=== PATIENT | female | born 1940 | race Caucasian/White ===

== ENCOUNTER 2017-07-11 06:06 | Day surgery (SDC) | payer MEDICARE, OTHER ==
[~2017-07-11] VITALS: Ht 167.6 cm; Wt 63.3 kg
[~2017-07-11 06:06] MED LIST: ASPI325 PO; ATOR40TA PO; CIPR500 PO; CLOP75 PO; ERGO400 PO; FEXO60; FOLI1 PO; GABA100 PO; IRON150C PO; LOSA25 PO; LOVA40 PO; NEBI5 PO; NITR.4SL SL; PARI1 PO; PHENA100 PO; ROSU5 PO; VALS80; VALS80 PO; VITAMIN D PO; [UNRECOGNIZED DRUG - OTHER]
[2017-07-11] MEDS ORDERED: ELIQUIS5 MG PO (06:36)
[2017-07-11] MEDS ORDERED: METO25 PO (06:36)
== END 2017-07-11 08:51 | disposition home or self-care (01) ==
LOC: ORSCSDS 06:06
PROVIDERS: Ophthalmology
PROC: 08RK3JZ Replacement of Left Lens with Synthetic Substitute, Percutaneous Approach (ICD-10-PCS; principal; 2017-07-11 07:30)
DX: H25.12 Age-related nuclear cataract, left eye (principal); I10 Essential (primary) hypertension; I48.91 Unspecified atrial fibrillation; I25.2 Old myocardial infarction; Z79.899 Other long term (current) drug therapy
CPT/HCPCS: 82947; J2250; J3301; V2632

== ENCOUNTER 2018-07-22 09:56 | Inpatient (IN) | payer MEDICARE, OTHER ==
[~2018-07-22] VITALS: Ht 167.6 cm; Wt 69.8 kg
[~2018-07-22 09:56] MED LIST changes: +CHOL10002 PO; +ELIQUIS5 MG PO; +METO25 PO; -VITAMIN D PO
[2018-07-22] MEDS ORDERED: LOSA25 PO (10:26)
[2018-07-22 10:52] LABS: BASOPHILS PERCENT AUTO 0 % (0-2); EOSINOPHILS ABSOLUTE AUTO 0.06 K/mm3 (0.00-0.68); EOSINOPHILS PERCENT AUTO 1 % (0-6); IMMATURE GRAN ABSOLUTE AUTO 0.05 K/mm3 (0.00-0.10); IMMATURE GRAN PERCENT AUTO 1 % (0-1); LYMPHOCYTES ABSOLUTE AUTO 2.17 K/mm3 (0.84-5.20); LYMPHOCYTES PERCENT AUTO 24 % (21-46); MONOCYTES ABSOLUTE AUTO 0.58 K/mm3 (0.16-1.47); MONOCYTES PERCENT AUTO 6 % (4-13); Mean Corpuscular HGB 26.5 pg (26.0-34.0); Mean Corpuscular HGB Conc 26.5 g/dL (31.5-36.5); Mean Platelet Volume 9.9 fL (9.1-12.4); NEUTROPHILS ABSOLUTE AUTO 6.37 K/mm3 (1.96-9.15); NEUTROPHILS PERCENT AUTO 69 % (41-73); Platelet Count 842 K/mm3 (150-400); RDW Coefficient Variation 17.2 % (11.7-14.2); RDW Standard Deviation 62.4 fL (35.1-46.3); Red Blood Cell Count 0.83 M/mm3 (3.80-5.20); White Blood Cell Count 9.23 K/mm3 (4.00-11.30)
[2018-07-22 10:59] LABS: Albumin, Blood 2.5 g/dL (3.4-5.0); Albumin/Globulin Ratio 0.5 (0.8-1.8); Bilirubin, Total 0.3 mg/dL (0.1-1.0); Bun/Creatinine Ratio 18.7 (12.0-20.0); Calcium, Blood 8.8 mg/dL (8.5-10.1); Creatinine, Blood 1.23 mg/dL (0.40-1.00); Potassium, Blood 4.4 mmol/L (3.5-5.5); Total Protein, Blood 7.5 g/dL (6.4-8.2)
[2018-07-22 11:08] LABS: Hematocrit 8.3 % (33.0-51.0); Mean Corpuscular Volume 100 fL (80-100)
[2018-07-22 11:10] LABS: Hemoglobin 2.2 g/dL (11.5-16.0)
[2018-07-22 12:41] LABS: Percent Saturation 10.2 % (15.0-50.0)
--- NOTE | 2018-07-22 18:37 | NUR ---
ARRIVAL AND SHIFT SUMMARY PT ARRIVED TO UNIT [facility] APPROX. 1705. PT ABLE TO ABMULATE FROM RNER TO BED AND TOLERATED WELL. DENIES DIZZINESS, SOB OR LIGHTHEADEDNESS WITH THIS. ORIENTED PT TO ROOM, UNIT, POLICIES AND PROCEDURES. PT A&O4. ASSESSMENT COMPLETED, VITAL SIGNS STABLE. PT REPORTS SOME PAIN IN RLQ WITH PALPITATION. DR WOMACK IN TO SEE PT. DISCUSSES PLAN WITH PT. PROTONIX DRIP STARTED. ADDMISSION PROCESS COMPLETED. NO CHANGES SINCE ADMISSION. BED IN LOW POSITION, CALL LIGHT IN REACH AND PT DENIES ANY NEEDS AT THIS TIME. WILL CONTINUE TO MONITOR UNTIL HANDOFF TO NIGHTSHIFT RN.
[2018-07-22 18:39] LABS: Hematocrit 28.1 % (33.0-51.0); Hemoglobin 8.6 g/dL (11.5-16.0)
--- NOTE | 2018-07-22 19:30 | NUR ---
ASSUMED CARE PT RESTING IN ROOM COMFORTABLY AT THIS TIME. PER DAY SHIFT PT CAME UP FROM ED WITH CRITICAL LOW HGB. PT RECEIVED 3 UNITS OF PRBC'S TODAY AND HGB LEVEL NOW ABOVE 8. GI CONSULT SAW PT AND LEFT ORDERS TO STOP ELLIQUIS TO PERFORM UPPER ENDOSCOPY WHEN ABLE. PT REPORTS FEELS BETTER. ABLT TO AMBULATE TO RR W/ SBA. RESP EVEN UNLBOARED ON RA W/ SATS >92%. PT DENIES PAIN AT THIS TIME. DENIES OTHER NEEDS. PROTONIX GTT AND NS INFUSING IN PIV. CALL LIGHT IN REACH.
[2018-07-22 22:48] LABS: Hematocrit 27.6 % (33.0-51.0); Hemoglobin 8.4 g/dL (11.5-16.0)
[2018-07-23 02:49] LABS: BASOPHILS ABSOLUTE AUTO 0.03 K/mm3 (0.00-0.23); BASOPHILS PERCENT AUTO 1 % (0-2); EOSINOPHILS ABSOLUTE AUTO 0.07 K/mm3 (0.00-0.68); EOSINOPHILS PERCENT AUTO 1 % (0-6); Hematocrit 26.4 % (33.0-51.0); Hemoglobin 8.1 g/dL (11.5-16.0); IMMATURE GRAN ABSOLUTE AUTO 0.02 K/mm3 (0.00-0.10); IMMATURE GRAN PERCENT AUTO 0 % (0-1); LYMPHOCYTES ABSOLUTE AUTO 1.46 K/mm3 (0.84-5.20); LYMPHOCYTES PERCENT AUTO 24 % (21-46); MONOCYTES ABSOLUTE AUTO 0.53 K/mm3 (0.16-1.47); MONOCYTES PERCENT AUTO 9 % (4-13); Mean Corpuscular HGB 27.6 pg (26.0-34.0); Mean Corpuscular HGB Conc 30.7 g/dL (31.5-36.5); Mean Platelet Volume 9.1 fL (9.1-12.4); NEUTROPHILS ABSOLUTE AUTO 3.87 K/mm3 (1.96-9.15); NEUTROPHILS PERCENT AUTO 65 % (41-73); Platelet Count 463 K/mm3 (150-400); RDW Standard Deviation 52.5 fL (35.1-46.3); Red Blood Cell Count 2.94 M/mm3 (3.80-5.20); White Blood Cell Count 5.98 K/mm3 (4.00-11.30)
[2018-07-23 02:51] LABS: Mean Corpuscular Volume 90 fL (80-100)
[2018-07-23 03:10] LABS: Albumin/Globulin Ratio 0.5 (0.8-1.8); Bilirubin, Total 0.8 mg/dL (0.1-1.0); Bun/Creatinine Ratio 14.5 (12.0-20.0); Calcium, Blood 8.1 mg/dL (8.5-10.1); Creatinine, Blood 1.1 mg/dL (0.40-1.00); Globulin, Blood 3.9 g/dL (2.2-4.0); Potassium, Blood 4.1 mmol/L (3.5-5.5); Total Protein, Blood 5.9 g/dL (6.4-8.2)
--- NOTE | 2018-07-23 06:01 | NUR ---
SHIFT SUMMARY PT IS SLEEPING IN ROOM COMFORTABLY AT THIS TIME. NO ACUTE CHANGES IN STATUS OVERNIGHT. PT SLEPT WELLL THOUGHOUT NIGHT, ONLY ONE COMPLAINT OF HEADACHE PAIN, PT WAS MEDICATED PER EMAR. RESP EVEN UNLBAORED ON RA W/ SATS >92%. DENIES PAIN THIS AM. PROTONIX AND NS INFUSING IN PIV. CALL LIGHT IN REACH.
[2018-07-23 06:55] LABS: Hematocrit 27.2 % (33.0-51.0); Hemoglobin 8.2 g/dL (11.5-16.0)
--- NOTE | 2018-07-23 07:40 | NUR ---
AM ASSESSMENT: Pt resting in bed. LS Clear. HR reg. BT positive. PUlses palp. Pt denies abd pain at this time. States that she does have a little MINAYA, but that it is improving. VSS. IVF running, protonix running. Call light in reach. Denies other needs.
[2018-07-23 10:29] LABS: Hematocrit 28.7 % (33.0-51.0); Hemoglobin 8.8 g/dL (11.5-16.0)
--- NOTE | 2018-07-23 13:54 | NUR ---
Patient gave student nurse permission to help care for her on 07/24/18
[2018-07-23 15:12] LABS: Hematocrit 23.5 % (33.0-51.0); Hemoglobin 7.1 g/dL (11.5-16.0)
--- NOTE | 2018-07-23 15:40 | NUR ---
UPDATE: H+H back from lab. Shows drop to 7.1. This was a line draw from and IV that is in the same vain that the NS was running. Infromed physician of this. Dr. Zazueta stated that he would like her to get another unit of PRBC anyway, and to do a redraw after the blood has infused.
--- NOTE | 2018-07-23 19:49 | NUR ---
Shift Summary: Pt sitting up in bed with unit of PRBC running per orders. VSS. Pt has done well this shift. Has been up to bathroom a few times today. Had one black BM. Pt has denied ABD pain this shift. Has remained on a CL diet. Plan for bowel prep tonight and NPO after 10 am for upper and lower scope 07/24. Pt verbalized understanding of bowel prep and blood transfusion. Report was given to night RN. Stable at end of shift.
[2018-07-24 03:44] LABS: BASOPHILS ABSOLUTE AUTO 0.04 K/mm3 (0.00-0.23); BASOPHILS PERCENT AUTO 1 % (0-2); EOSINOPHILS ABSOLUTE AUTO 0.13 K/mm3 (0.00-0.68); EOSINOPHILS PERCENT AUTO 2 % (0-6); Hematocrit 30.2 % (33.0-51.0); Hemoglobin 9.3 g/dL (11.5-16.0); IMMATURE GRAN ABSOLUTE AUTO 0.02 K/mm3 (0.00-0.10); IMMATURE GRAN PERCENT AUTO 0 % (0-1); LYMPHOCYTES ABSOLUTE AUTO 1.25 K/mm3 (0.84-5.20); LYMPHOCYTES PERCENT AUTO 18 % (21-46); MONOCYTES ABSOLUTE AUTO 0.56 K/mm3 (0.16-1.47); MONOCYTES PERCENT AUTO 8 % (4-13); Mean Corpuscular HGB Conc 30.8 g/dL (31.5-36.5); Mean Corpuscular Volume 91 fL (80-100); NEUTROPHILS ABSOLUTE AUTO 5.06 K/mm3 (1.96-9.15); NEUTROPHILS PERCENT AUTO 72 % (41-73); Platelet Count 478 K/mm3 (150-400); RDW Coefficient Variation 16.3 % (11.7-14.2); RDW Standard Deviation 53.3 fL (35.1-46.3); RETICULOCYTE ABSOLUTE 0.1072 M/mm3 (0.0200-0.1100); RETICULOCYTE COUNT PERCENT 3.23 % (0.50-2.50); Red Blood Cell Count 3.32 M/mm3 (3.80-5.20); White Blood Cell Count 7.06 K/mm3 (4.00-11.30)
[2018-07-24 04:04] LABS: Albumin, Blood 2.1 g/dL (3.4-5.0); Albumin/Globulin Ratio 0.5 (0.8-1.8); Bilirubin, Total 0.7 mg/dL (0.1-1.0); Bun/Creatinine Ratio 12.6 (12.0-20.0); Calcium, Blood 8.5 mg/dL (8.5-10.1); Creatinine, Blood 1.03 mg/dL (0.40-1.00); Globulin, Blood 4.3 g/dL (2.2-4.0); Magnesium, Blood 1.9 mg/dL (1.6-2.4); Phosphorus, Blood 3.5 mg/dL (2.5-4.9); Potassium, Blood 4.1 mmol/L (3.5-5.5); Total Protein, Blood 6.4 g/dL (6.4-8.2)
--- NOTE | 2018-07-24 05:46 | NUR ---
SHIFT SUMMARY: PT RECEIVED 1 U OF BLOOD. STARTED COLON PREP AT 2000 AND FINISHED AT 2400. LAST BM WAS WATERY DARK RED NO FECAL MATTER NOTED. VITAL SIGN REMAINED STABLE DURING SHIFT. BED ALARM WAS SET AND CALL LIGHT WITHIN REACH.
--- NOTE | 2018-07-24 07:20 | NUR ---
AM ASSESSMENT: Pt resting in bed. VSS. LS clear. HR reg. BT hyperactive. Pt using BSC. Having frequent liquid bloody stools with small amounts of sediment. Appear to be fairly clear for procedure. Pt denies abd pain. States that she has a small MINAYA that she denies needing anything for. Pulses palp. No other changes at this time. Pt knows that she will be NPO after 1000 this am. Call light in reach.
--- NOTE | 2018-07-24 13:55 | NUR ---
Pt. in bed resting and her nurse in the room attending to her needs offered prayers and support.
--- NOTE | 2018-07-24 15:30 | NUR ---
update: Pt resting in bed. Son at bedside. Plan for upper and lower scope this afternoon. Pt becoming slightly anxious about it being pushed back. States "what if the doctor is too tired?" Assured Pt that the procedure would not be done if the physician felt it was too dangerous. VSS. No acute changes at this time. Will monitor.
--- NOTE | 2018-07-24 19:05 | NUR ---
shift summary: Pt resting in room at this time. Has not gone for upper or lower scope yet today, plan for any time to go for scope. VSS throughout shift. Pt has not had any stool since this am, which was clear, red. HR has remained NSR, LS has been clear. BT positive. Pt very anxious about scope being done so late in the evening. Assured pt that the scope would only be completed if it was safe to do it. At that time day surgery came to get Pt and she was taken down for scope. Report given to night rn. Stable at end of shift.
--- NOTE | 2018-07-24 19:18 | NUR ---
ADMITTED OT SDS VSS TEMP ELEVATED. ALERT OREITED A LITTLE NERVOUS
--- NOTE | 2018-07-24 22:30 | NUR ---
PATIENT ARRIVED AT 2030 POST SCOPE PROCEDURE. PATIENT A/O NO PAIN AND NO CHANGE ON PRIMARY ASSESSMENT.
[2018-07-25 04:03] LABS: BASOPHILS ABSOLUTE AUTO 0.02 K/mm3 (0.00-0.23); BASOPHILS PERCENT AUTO 0 % (0-2); EOSINOPHILS ABSOLUTE AUTO 0.17 K/mm3 (0.00-0.68); EOSINOPHILS PERCENT AUTO 3 % (0-6); Hematocrit 28.2 % (33.0-51.0); Hemoglobin 8.4 g/dL (11.5-16.0); IMMATURE GRAN ABSOLUTE AUTO 0.02 K/mm3 (0.00-0.10); IMMATURE GRAN PERCENT AUTO 0 % (0-1); LYMPHOCYTES PERCENT AUTO 15 % (21-46); MONOCYTES PERCENT AUTO 9 % (4-13); Mean Corpuscular HGB 27.1 pg (26.0-34.0); Mean Corpuscular HGB Conc 29.8 g/dL (31.5-36.5); Mean Corpuscular Volume 91 fL (80-100); Mean Platelet Volume 9.2 fL (9.1-12.4); NEUTROPHILS PERCENT AUTO 73 % (41-73); Platelet Count 449 K/mm3 (150-400); RDW Coefficient Variation 16.6 % (11.7-14.2); RDW Standard Deviation 53.6 fL (35.1-46.3); White Blood Cell Count 6.61 K/mm3 (4.00-11.30)
[2018-07-25 04:22] LABS: Albumin, Blood 1.9 g/dL (3.4-5.0); Albumin/Globulin Ratio 0.5 (0.8-1.8); Bilirubin, Total 0.7 mg/dL (0.1-1.0); Bun/Creatinine Ratio 7.2 (12.0-20.0); Calcium, Blood 8.4 mg/dL (8.5-10.1); Creatinine, Blood 0.98 mg/dL (0.40-1.00); Globulin, Blood 4.1 g/dL (2.2-4.0); Potassium, Blood 3.5 mmol/L (3.5-5.5)
--- NOTE | 2018-07-25 06:12 | NUR ---
SHIFT SUMMARY: PT ALERT AND ORIENTED. REMAINED STABLE POST PROCEDURE AND DURING SHIFT. ON CLEAR LIQUID DIET. SLEPT THROUGHOUT SHIFT. BED IN LOW POSITION AND CALL LIGHT WITHIN REACH.
--- NOTE | 2018-07-25 08:00 | NUR ---
pt sitting up in bed awake a/ox3, pleasant and cooperative with care, follows commands well, denies pain, or dizziness, lungs are clear t/o, resp even and unlabored, no cough noted, hrr, tele in place running sr with 1st degree block, no edema noted, ppp+2, cap refill <3 sec, vs stable, afebrile, iv site is clear and patent to left fa, iv to dipak is not flushing, btx4, abd flat soft nontender, voids without diff, skin c/w/d, maew, thelma, call light in reach.
--- NOTE | 2018-07-25 10:03 | NUR ---
pt reports she has had three stools with red blood this am. denies any dizziness. asked her to call if she begins experiencing anything off. call light in reach.
--- NOTE | 2018-07-25 10:05 | NUR ---
verified that surgical consult has been called in to surgeon.
--- NOTE | 2018-07-25 12:44 | NUR ---
PT DOING OK, SAT UP ON SIDE OF BED TO HAVE LUNCH. NO COMPLAINTS. WANTS A SHOWER LATER. WAITING FOR SURGICAL CONSULT. CALL LIGHT IN REACH.
--- NOTE | 2018-07-25 13:39 | NUR ---
Met pt. in bed who said she is doing well and do not need a visitor
[2018-07-25 15:11] LABS: Hematocrit 30.8 % (33.0-51.0); Hemoglobin 9.2 g/dL (11.5-16.0)
--- NOTE | 2018-07-25 18:38 | NUR ---
PT HAD THREE EPISODES OF BLOOD IN HER STOOL TODAY, DR. WOMACK WAS IN TO SEE HER AND SAID COULD BE FROM BIOPSIES. NO FURTHER EPISODES SINCE THIS AM. WILL BE GOING TO SURGERY TOMORROW AM. PT UNDERSTANDS SHE NEEDS TO BE NPO AFTER MIDNIGHT. CALL LIGHT IN REACH.
--- NOTE | 2018-07-26 07:49 | NUR ---
INTO SDS VIA BED. PT A&OX3. IROQUOIS-HEARING AIDES IN PLACE. NPO STATUS CONFIRMED. HISTORY AND ALLERGIES REVIEWED.LUNGS CLEAR-SATS>90% ON RA.ABDOMEN PREPPED WITH CHLORHEXIDINE.
--- NOTE | 2018-07-26 07:52 | NUR ---
Glenn STEWARD, PT LEAVING FOR OR. NO COMPLAINTS, STATES SHE IS A BIT ANXIOUS. HAD A GOOD NIGHT. LEFT VIA BED WITH DAY SURG NURSES.
--- NOTE | 2018-07-26 09:08 | NUR ---
07/26/18 0908 Gianni Curry PATIENT DETERMINED TO BE ASA APPROPRIATE FOR PROPOFOL SEDATION PRIOR TO START OF PROCEDURE BY 3-LEAD EKG REVIEWED WITH PHYSICIAN PRIOR TO START OF PROCEDURE.Patient to ENDO 1History, Chart, Medications and Allergies reviewed before start of procedure.MONITOR INTACT WITH CONTINUOUS PULSE OXIMETRY AND INTERMITTENT BP.O2 VIA N/C INTACT THROUGHOUT SEDATION/PROCEDURE.
--- NOTE | 2018-07-26 12:32 | NUR ---
pt arrived to room via bed from pacu, she is sleepy but wakes easily. vs stable. incision has a wound vac in place. call light in reach. will continued to monitor.
--- NOTE | 2018-07-26 13:20 | NUR ---
pt doing ok, is having some ice chips very slowly. family at bedside. no complaints. vs stalble. call light in reach.
--- NOTE | 2018-07-26 15:17 | NUR ---
pt has been transfered to surgical floor, after giving report to the recieving nurse, all pts belongings were taken with her.
--- NOTE | 2018-07-26 19:02 | NUR ---
shift summary patient to the floor from pcu at [address], all dressings c/d/i. patient pleasant. numbness in the r hip, pain level at 3. pleasant. no pain level above3.
[2018-07-27 03:59] LABS: BASOPHILS ABSOLUTE AUTO 0.02 K/mm3 (0.00-0.23); BASOPHILS PERCENT AUTO 0 % (0-2); EOSINOPHILS PERCENT AUTO 0 % (0-6); Hematocrit 29.6 % (33.0-51.0); IMMATURE GRAN ABSOLUTE AUTO 0.03 K/mm3 (0.00-0.10); IMMATURE GRAN PERCENT AUTO 0 % (0-1); LYMPHOCYTES ABSOLUTE AUTO 0.49 K/mm3 (0.84-5.20); LYMPHOCYTES PERCENT AUTO 4 % (21-46); MONOCYTES ABSOLUTE AUTO 0.44 K/mm3 (0.16-1.47); MONOCYTES PERCENT AUTO 4 % (4-13); Mean Corpuscular HGB 27.3 pg (26.0-34.0); Mean Corpuscular HGB Conc 30.4 g/dL (31.5-36.5); Mean Corpuscular Volume 90 fL (80-100); Mean Platelet Volume 9.2 fL (9.1-12.4); NEUTROPHILS ABSOLUTE AUTO 11.04 K/mm3 (1.96-9.15); NEUTROPHILS PERCENT AUTO 92 % (41-73); Platelet Count 516 K/mm3 (150-400); RDW Standard Deviation 51.9 fL (35.1-46.3); White Blood Cell Count 12.02 K/mm3 (4.00-11.30)
[2018-07-27 04:12] LABS: Bun/Creatinine Ratio 9.3 (12.0-20.0); Calcium, Blood 8.4 mg/dL (8.5-10.1); Creatinine, Blood 1.08 mg/dL (0.40-1.00); Potassium, Blood 3.9 mmol/L (3.5-5.5)
--- NOTE | 2018-07-27 16:50 | NUR ---
SHIFT SUMMARY PATIENT HAS BEEN PLEASANT TODAY. ALERT AND ORIENTED. NO LOSS OF SENSATION AND NO NUMBNESS NOTED IN HER HIP ANYMORE. PATIENT DENIES PAIN ANYWHERE AND STATES PAIN IS 0/10. NO ACUTE CONERNS FROM THE PATIENT AND REPORTS THAT SHE IS STARTING TO GET NAUSEOUS. ASSESSED FOR CHANGES, PATIENT IS LOOKING MORE DISTENDED AND NOTES THAT SHE HAS NOT PASSED FLATUS AT THIS POINT. SHE STATES THAT SHE IS FEELING BLOATED, BUT HAS NO PAIN. WILL CONTINUE TO MONITOR AND ASSESS FOR CHANGES.
[2018-07-28 04:08] LABS: BASOPHILS ABSOLUTE AUTO 0.01 K/mm3 (0.00-0.23); BASOPHILS PERCENT AUTO 0 % (0-2); EOSINOPHILS ABSOLUTE AUTO 0.05 K/mm3 (0.00-0.68); EOSINOPHILS PERCENT AUTO 1 % (0-6); Hematocrit 28.3 % (33.0-51.0); Hemoglobin 8.7 g/dL (11.5-16.0); IMMATURE GRAN ABSOLUTE AUTO 0.03 K/mm3 (0.00-0.10); IMMATURE GRAN PERCENT AUTO 0 % (0-1); LYMPHOCYTES ABSOLUTE AUTO 0.75 K/mm3 (0.84-5.20); LYMPHOCYTES PERCENT AUTO 8 % (21-46); MONOCYTES PERCENT AUTO 4 % (4-13); Mean Corpuscular HGB 27.4 pg (26.0-34.0); Mean Corpuscular HGB Conc 30.7 g/dL (31.5-36.5); Mean Corpuscular Volume 89 fL (80-100); Mean Platelet Volume 9.5 fL (9.1-12.4); NEUTROPHILS ABSOLUTE AUTO 8.53 K/mm3 (1.96-9.15); NEUTROPHILS PERCENT AUTO 87 % (41-73); Platelet Count 549 K/mm3 (150-400); RDW Coefficient Variation 15.8 % (11.7-14.2); RDW Standard Deviation 51.5 fL (35.1-46.3); Red Blood Cell Count 3.18 M/mm3 (3.80-5.20); White Blood Cell Count 9.77 K/mm3 (4.00-11.30)
--- NOTE | 2018-07-28 04:38 | NUR ---
SHIFT SUMMARY PT IS POD 2 RIGHT HEMICOLECTOMY. PREVENA WOUND VAC IN PLACE, C/D/I. PT HAS BEEN NAUSEATED T/O THE NIGHT AND HAS REQUIRED MULTIPLE DOSES OF ZOFRAN. SHE HAS HAD A SMALL AMOUNT OF BROWN BILE EMESIS. PT IS TAKING IN ONLY SMALL AMOUNTS OF LIQUIDS, COMPLETELY UNINTERESTED IN MEAL TRAYS. SHE SKIPPED DINNER LAST NIGHT AND HAS ALREADY STATED SHE DOES NOT WANT BREAKFAST. PT C/O GENERAL MALAISE AND UPSET STOMACH. SHE DOES REPORT HER PAIN IS 0/10 WITH THE EPIDURAL. SHE HAS PASSED GAS ONCE AND HAD SOME BELCHING. PT IS A 1 ASSIST W/ FWW AND GB FOR AMBULATION. FLUIDS RUNNING TO KVO. SIERRA PATENT AND DRAINING. PT A&O, ABLE TO MAKE NEEDS KNOWN. WILL CTM UNTIL PASS TO NEXT SHIFT.
--- NOTE | 2018-07-28 17:50 | NUR ---
SHIFT SUMMARY CONSISTANT NAUSEA T/O THE SHIFT WITH INTERMITTANT EPISODES OF EMESIS. AFTER PHENERGAN ADMINISTRATION PT REPORTS NO NAUSEA FOR FIRST TIME DURING THIS SHIFT. ABD HAS BECOME MORE DISTENDED T/O SHIFT, RECENT INCREASE IN EMESIS. DISCUSSED NGT BENIFITS WITH PT AND REFUSES- SURGEON NOTIFIED OF THIS. AMBULATED 400 FEET THIS MORNING WITH 2 PERSON ASSIST AND GAITBELT, VERY WEAK. UP IN CHAIR TWICE TODAY. EPIDURAL IN USE WITH DRESSING INTACT AND MANAGING PAIN WELL. NO C/O PAIN DURING SHIFT.
[2018-07-29 04:30] LABS: BASOPHILS ABSOLUTE AUTO 0.01 K/mm3 (0.00-0.23); BASOPHILS PERCENT AUTO 0 % (0-2); EOSINOPHILS PERCENT AUTO 0 % (0-6); Hematocrit 34.7 % (33.0-51.0); Hemoglobin 10.6 g/dL (11.5-16.0); IMMATURE GRAN ABSOLUTE AUTO 0.01 K/mm3 (0.00-0.10); IMMATURE GRAN PERCENT AUTO 0 % (0-1); LYMPHOCYTES ABSOLUTE AUTO 0.31 K/mm3 (0.84-5.20); LYMPHOCYTES PERCENT AUTO 4 % (21-46); MONOCYTES ABSOLUTE AUTO 0.38 K/mm3 (0.16-1.47); MONOCYTES PERCENT AUTO 5 % (4-13); Mean Corpuscular HGB 27.7 pg (26.0-34.0); Mean Corpuscular HGB Conc 30.5 g/dL (31.5-36.5); Mean Corpuscular Volume 91 fL (80-100); Mean Platelet Volume 9.3 fL (9.1-12.4); NEUTROPHILS ABSOLUTE AUTO 6.33 K/mm3 (1.96-9.15); NEUTROPHILS PERCENT AUTO 90 % (41-73); Platelet Count 660 K/mm3 (150-400); RDW Coefficient Variation 15.7 % (11.7-14.2); RDW Standard Deviation 51.5 fL (35.1-46.3); Red Blood Cell Count 3.83 M/mm3 (3.80-5.20); White Blood Cell Count 7.04 K/mm3 (4.00-11.30)
[2018-07-29 04:45] LABS: Bun/Creatinine Ratio 12.1 (12.0-20.0); Calcium, Blood 8.9 mg/dL (8.5-10.1); Creatinine, Blood 1.07 mg/dL (0.40-1.00); Potassium, Blood 3.5 mmol/L (3.5-5.5)
--- NOTE | 2018-07-29 06:31 | NUR ---
SITTING UP IN CHAIR AT BEDSIDE WITH EYES CLOSED. MEDICATED FOR N/V X5 THIS SHIFT. NO FURTHER CHANGES SINCE START OF SHIFT. SAFETY MEASURES IN PLACE. WILL GIVE HAND OFF TO ONCOMING SHIFT USING SBAR.
--- NOTE | 2018-07-29 09:30 | NUR ---
AIRLINE COUNTER AGENT AND THIS RN PLACED NGT TO LIS PER DR ORDER PT HAS BEEN HAVING MULT EPISODES OF EMESIS.
--- NOTE | 2018-07-29 19:15 | NUR ---
SHIFT SUMMARY PT WAS VERY NAUSEOUS THIS MORNING. NG TUBE WAS PLACED THIS MORNING. PT REPORTS FEELING MUCH BETTER AFTER NG TUBE PLACEMENT. OT AND PHYSICAL THERAPY IN TO SEE PT TODAY. PT DID NOT FEEL UP TO GETTING OUT OF BED TODAY. PT HAS BEEN EATING FEW ICE CHIPS. SIERRA IN PLACE AND DRAINING AND OFF FLOOR. CALL LIGHT IN REACH. PT BEEN ASSISTED WITH ADL'S PRN.
--- NOTE | 2018-07-30 06:10 | NUR ---
LYING IN SEMI FOWLERS WITH EYES CLOSED. EPIDURAL SITE IS C/D/I, DENIES PAIN AT THIS TIME. NO FURTHER CHANGES SINCE START OF SHIFT. SAFETY MEASURES IN PLACE. WILL GIVE HAND OFF TO ONCOMING SHIFT USING SBAR.
[2018-07-30 08:12] LABS: BASOPHILS ABSOLUTE AUTO 0.02 K/mm3 (0.00-0.23); BASOPHILS PERCENT AUTO 0 % (0-2); EOSINOPHILS ABSOLUTE AUTO 0.07 K/mm3 (0.00-0.68); EOSINOPHILS PERCENT AUTO 1 % (0-6); Hematocrit 31.9 % (33.0-51.0); Hemoglobin 9.6 g/dL (11.5-16.0); IMMATURE GRAN ABSOLUTE AUTO 0.02 K/mm3 (0.00-0.10); IMMATURE GRAN PERCENT AUTO 0 % (0-1); LYMPHOCYTES ABSOLUTE AUTO 0.73 K/mm3 (0.84-5.20); LYMPHOCYTES PERCENT AUTO 11 % (21-46); MONOCYTES ABSOLUTE AUTO 0.55 K/mm3 (0.16-1.47); MONOCYTES PERCENT AUTO 8 % (4-13); Mean Corpuscular HGB 27.3 pg (26.0-34.0); Mean Corpuscular HGB Conc 30.1 g/dL (31.5-36.5); Mean Corpuscular Volume 91 fL (80-100); Mean Platelet Volume 9.5 fL (9.1-12.4); NEUTROPHILS ABSOLUTE AUTO 5.17 K/mm3 (1.96-9.15); NEUTROPHILS PERCENT AUTO 79 % (41-73); Platelet Count 591 K/mm3 (150-400); RDW Coefficient Variation 15.9 % (11.7-14.2); RDW Standard Deviation 51.9 fL (35.1-46.3); Red Blood Cell Count 3.52 M/mm3 (3.80-5.20); White Blood Cell Count 6.56 K/mm3 (4.00-11.30)
[2018-07-30 08:29] LABS: Bun/Creatinine Ratio 16.8 (12.0-20.0); Calcium, Blood 8.1 mg/dL (8.5-10.1); Creatinine, Blood 1.01 mg/dL (0.40-1.00); Potassium, Blood 3.5 mmol/L (3.5-5.5)
--- NOTE | 2018-07-30 08:35 | NUR ---
DR BASS NOTIFIED OF PT'S STATUS INCLUDING VS. SEE ORDERS.
--- NOTE | 2018-07-30 09:38 | NUR ---
DR BASS RECENTLY TO SEE PT, GIVEN UPDATE. SEE ORDERS.
--- NOTE | 2018-07-30 10:12 | NUR ---
DISCUSSED PT'S STATUS WITH DR BASS.
--- NOTE | 2018-07-30 11:48 | NUR ---
PT HR 110 AT THIS TIME PER TELEMETRY.
--- NOTE | 2018-07-30 13:15 | NUR ---
BEEN UPDATING DR BASS, SEE ORDERS. DR AMADO HERE TO SEE PT, GIVEN UPDATE ON PT. PT CONT TO REPORT PASSING GAS. REPORTS H/A.
--- NOTE | 2018-07-30 14:00 | NUR ---
Patient permission On 07/30/18 @ 1345, patient gave student permission to participate in care on 07/31/18
--- NOTE | 2018-07-30 15:53 | NUR ---
TELE REPORTS HR 120.
--- NOTE | 2018-07-30 17:38 | NUR ---
PT RESTING QUIETLY IN CHAIR, REPORTS MINAYA BETTER AND REPORTS FEELING BETTER. TELE REPORTS HR 115-128. PT CONT TO DENY CP/SOB. PT PASSING GAS. SIERRA IN PLACE. SEE I/O. DR BASS UPDATED ON PT'S STATUS. REPORTS TO KEEP SIERRA IN PLACE FOR STRICT I/O AND TRANSFER PT TO PCU. REPORTS WILL PLACE OTHER ORDERS. DISCUSSED WITH REGULATORY COMPLIANCE MANAGER. WILL DISCUSS WITH NURSING WEIGHT LOSS COUNSELOR.
--- NOTE | 2018-07-30 17:44 | NUR ---
NURSING THERMOSTAT MECHANIC NOTIFIED OF DR BASS TRANSFER PT TO PCU.
--- NOTE | 2018-07-30 18:38 | NUR ---
PT TO TRANSFER TO PCU PER DR BASS. SHOVEL LOGGER (SANTIAGO) GIVEN REPORT. PT REPORTED TEXTING FAMILY AND THAT THIS RN DID NOT NEED TO GIVE UPDATE TO FAMILY. WILL TRANSFER PT TO PCU.
--- NOTE | 2018-07-30 18:45 | NUR ---
PT TRANSFERRED TO PCU IN RECLINER CHAIR. PT ASSISTED TO BED WITH MULT ASSIST. NGT TO GRAVITY. PT'S MEDICATIONS AND BELONGINGS SENT WITH PT. PT HAD NO REDNESS ON BOTTOM WHEN MOVING TO BED. HS RN IN ROOM, REPORTS WILL OBTAIN REPORT FROM DAYSHIFT TAKER OFF BRAKER MACHINE.
--- NOTE | 2018-07-30 19:52 | NUR ---
PT REPORT RECEIVED AT 1840 FROM NHUNG JACINTO IN SURGICAL. GAVE REPORT TO NHUNG العراقي AND HELPED TO SETTLE PATIENT, START IV DRIPS AND PASS REPORT.
--- NOTE | 2018-07-30 20:43 | NUR ---
CARDIZEM DRIP RATE INCREASED TO 10MG/HR AT THIS TIME, VERIFIED WITH RN, YANIRA. HR RANGING 110-140 BP 143/78. PT A/O WILL CTM
--- NOTE | 2018-07-30 22:22 | NUR ---
CARDIZEM DRIP RATE INCREASED TO 15MG/HR AT THIS TIME, DOSE VERIFIED BY NHUNG DOYLE
--- NOTE | 2018-07-31 05:29 | NUR ---
CARDIZEM DRIP TITRATED TO 10MG/HR AT THIS TIME. PT HR 85-105 PER TELE, AFIB, BP STABLE.
--- NOTE | 2018-07-31 05:55 | NUR ---
SUMMARY: SEE PREVIOUS NOTES. PT IS POD5 FOR A R NIRAV COLECTOMY. A/O, VSS THIS AM. CARDIZEM TITRATED TO 10MG/HR THIS AM. HR RANGING 85-105, AFIB. PT DENIES SOB, CHEST PAIN. PT REPORTS PASSING GAS AND HAS HAD 3 BM'S. PT HAS DENIED N/V, NGT TO GRAVITY, NO OUTPUT. PT UP WITH SBA, SOME WEAKNESS. SURGICAL SITE WNL, SIERRA DRAINING. NO ACUTE SAFETY CONCERNS AT THIS TIME.
[2018-07-31 05:58] LABS: Albumin, Blood 1.8 g/dL (3.4-5.0); Anion Gap 9 mmol/L (6-16); Blood Urea Nitrogen 21 mg/dL (8-24); Bun/Creatinine Ratio 21.7 (12.0-20.0); CO2, Blood 22 mmol/L (21-32); Chloride, Blood 110 mmol/L (98-108); Creatinine, Blood 0.97 mg/dL (0.40-1.00); Glomerular Filtration Rate 59 (60-); Glucose, Blood 76 mg/dL (70-99); Phosphorus, Blood 2.6 mg/dL (2.5-4.9); Potassium, Blood 3.6 mmol/L (3.5-5.5); Sodium, Blood 141 mmol/L (136-145)
--- NOTE | 2018-07-31 17:02 | NUR ---
SHIFT SUMMARY PT A&OX3. PT HAS BEEN PLEASANTLY UP IN THE CHAIR MOST OF THE DAY. DIET ADVANCED TO CLEAR LIQUID AT LUNCHTIME AND HAS BEEN TOLERATED WELL. NG TUBE AND SIERRA WERE PULLED AT 1630, AND BOTH TOLERATED WELL. PT HAS HAD BM TODAY, AND 2 LAST NIGHT. BOWEL SOUNDS IN ALL 4 QUADRANTS, NO N/V. PT BEEN ON CARDIZEM ALL DAY, STARTED AT 10ML/HR AND TITRATED UP TO 15ML/HR DUE TO HR STAYING IN THE LOW 100'S. PT HAS AMBULATED TWICE IN THE ROOM TODAY. PT HAS NUMBNESS IN RIGHT UPPER LEG SINCE OPERATION, DR. BASS WAS NOTIFIED AND TALKED WITH PT. CALL LIGHT IN REACH, BED IN LOWEST POSITION, AND SAFETY PRECAUTIONS HAVE BEEN DISCUSSED.
--- NOTE | 2018-07-31 21:45 | NUR ---
PT UPDATE... PT UP TO THE BSC, HAD SMALL LOOSE BM BUT NO VOID. BLADDER SCAN WAS DONE, 123 MLS WAS FOUND, WILL CONTINUE TO MONITOR.
--- NOTE | 2018-07-31 23:04 | NUR ---
PM NOTE. ASSUMED CARE OF PT APROX 1900, PT IS A&Ox4 AND SBA IN THE ROOM. PT IS S/P ABD SURGERY WITH WOUND VAC IN PLACE. PT ALSO HAS AFIB IN THE 90'S-100'S AND IS ON CARDIZEM GTT AT 10MG/HR. TELE INTACT, AFIB IN THE 'S-'S, PT'S BP 133/60. NO EDEMA NOTED. L/S CLEAR T/O W/FINE CRACKLES IN THE LEFT LOWER BASE. PT IS ON RA RR 19, EVEN AND UNLABORED. ABD HAS WOUND VAC DRESSING, THIS IS C/D/I, WOUND VAC IS PATENT. ABD AROUND THE WOUND VAC IS SLIGHTLY TENDER. PT'S SIERRA WAS D/C'D AT 1630, PT HAS NOT VOIDED AT THIS TIME. WILL MONITOR. CALL LIGHT IN REACH, BED IS LOCKED AND LOW WILL CONTINUE TO MONITOR.
[2018-08-01 05:13] LABS: Hematocrit 32.9 % (33.0-51.0); Hemoglobin 9.5 g/dL (11.5-16.0)
[2018-08-01 05:35] LABS: Anion Gap 9 mmol/L (6-16); Blood Urea Nitrogen 20 mg/dL (8-24); CO2, Blood 23 mmol/L (21-32); Calcium, Blood 8.4 mg/dL (8.5-10.1); Chloride, Blood 107 mmol/L (98-108); Creatinine, Blood 0.91 mg/dL (0.40-1.00); Glomerular Filtration Rate >60 (60-); Glucose, Blood 79 mg/dL (70-99); Phosphorus, Blood 2.2 mg/dL (2.5-4.9); Potassium, Blood 3.1 mmol/L (3.5-5.5); Sodium, Blood 139 mmol/L (136-145)
--- NOTE | 2018-08-01 05:52 | NUR ---
SHIFT SUMMARY. PT HAS BEEN UNABLE TO VOID SINCE HER SIERRA WAS D/C'D AT 1630 ON 07/31. PROVIDER WAS CALLED, ORDERS OBTAINED TO BLADDER SCAN PRN, IF 500MLS OR GREATER IS FOUND TO STRAIGHT CATH. PT IS AGREEABLE AT THIS TIME TO THIS PLAN, LAST BLADDER SCAN DONE AT 0515 FOUND 457 MLS. PT HAS BEEN UP TO COMMODE AND WALKED AROUND THE ROOM MULTIPLE TIMES. PT IS CURRENTLY ON 5MG/HR CARDIZEM, SHE IS IN AFIB IN THE 80'S PER CLINICAL REGISTERED NURSE, PT'S BP HAS BEEN STABLE T/O SHIFT. PT STILL C/O NUMBNESS AND WEAKNESS TO HER RIGHT LEG FROM THE EPIDURAL SHE HAD FOR HER SURGERY. PT STATES NO IMPROVMENT THIS SHIFT. CALL LIGHT IN REACH, BED IS LOCKED AND LOW WILL CONTINUE TO MONITOR UNTIL REPORT IS GIVEN TO ONCOMING RN.
--- NOTE | 2018-08-01 15:05 | NUR ---
Met pt lying in bed resting she reports to be doing well, encouraged pt , offered spiritual support and prayers .
--- NOTE | 2018-08-01 18:31 | NUR ---
SHIFT SUMMARY PT ALERT AND ORIENTED. VS STABLE. CARDIZEM GTT WAS DISCONTINUED THIS SHIFT. HR HAS BEEN 90'S TO 100'S AFIB. BP STABLE. PT VOIDED EARLY IN THE SHIFT AND HAS VOIDED MULTIPLE TIMES. PT BLADDER SCANNED ONCE, BUT NOT ENOUGH TO STRAIGHT CATH. PT HAD MULTIPLE LIQUID BOWEL MOVEMENTS THIS SHIFT DARK BROWN. PT ABLE TO TOLERATE A REGULAR DIET. WILL CONTINUE TO MONITOR AND REPORT TO ONCOMING RN.
[2018-08-02 04:19] LABS: Albumin, Blood 1.7 g/dL (3.4-5.0); Anion Gap 5 mmol/L (6-16); Blood Urea Nitrogen 16 mg/dL (8-24); Bun/Creatinine Ratio 19.7 (12.0-20.0); CO2, Blood 24 mmol/L (21-32); Calcium, Blood 7.9 mg/dL (8.5-10.1); Chloride, Blood 108 mmol/L (98-108); Creatinine, Blood 0.81 mg/dL (0.40-1.00); Glomerular Filtration Rate >60 (60-); Glucose, Blood 88 mg/dL (70-99); Phosphorus, Blood 2.3 mg/dL (2.5-4.9); Potassium, Blood 3.5 mmol/L (3.5-5.5); Sodium, Blood 137 mmol/L (136-145)
--- NOTE | 2018-08-02 06:00 | NUR ---
SUMMARY PT REQUIRED 1 DOSE IV LOPRESSER TONIGHT TO BRING HEART RATE BELOW 100. WAS UP IN CHAIR THIS AM. BOTTOM GETTING RED.PLACED MEPILEX.
--- NOTE | 2018-08-02 14:24 | NUR ---
Met pt. in bed relaxed and watching T.V.. Pt. is dsoing muchn better encouraged pt.
--- NOTE | 2018-08-02 18:14 | NUR ---
SHIFT SUMMARY PT ALERT AND ORIENTED. O2 SATS HAVE REMAINED ABOVE 90% ON RA. BP STABLE. HR HAS BEEN 120'S AFIB THORUGHOUT SHIFT. ORAL METOPROLOL HAS BEEN INCREASED FOR BETTER RATE CONTROL. PT ABLE TO VOID THIS SHIFT WITHOUT RETENTION. NO BOWEL MOVEMENT THIS SHIFT, BUT PT IS PASSING GAS. WOUND VAC TO ABD IN PLACE. PT DENIES ANY PAIN. PT WALKED MULTIPLE TIMES THROUGHOUT DAY IN ROOM WITH FWW. PT COMPLAINS OF NUMBNESS TO RIGHT LEG SINCE EPIDURAL. WILL CONTINUE TO MONITOR AND REPORT TO ONCOMING RN. CALL LIGHT IN REACH.
[2018-08-03 05:05] LABS: BASOPHILS ABSOLUTE AUTO 0.05 K/mm3 (0.00-0.23); BASOPHILS PERCENT AUTO 1 % (0-2); EOSINOPHILS ABSOLUTE AUTO 0.42 K/mm3 (0.00-0.68); EOSINOPHILS PERCENT AUTO 5 % (0-6); Hematocrit 33.2 % (33.0-51.0); Hemoglobin 9.8 g/dL (11.5-16.0); IMMATURE GRAN ABSOLUTE AUTO 0.09 K/mm3 (0.00-0.10); IMMATURE GRAN PERCENT AUTO 1 % (0-1); LYMPHOCYTES ABSOLUTE AUTO 1.76 K/mm3 (0.84-5.20); LYMPHOCYTES PERCENT AUTO 21 % (21-46); MONOCYTES ABSOLUTE AUTO 0.52 K/mm3 (0.16-1.47); MONOCYTES PERCENT AUTO 6 % (4-13); Mean Corpuscular HGB 26.9 pg (26.0-34.0); Mean Corpuscular HGB Conc 29.5 g/dL (31.5-36.5); Mean Corpuscular Volume 91 fL (80-100); Mean Platelet Volume 10.4 fL (9.1-12.4); NEUTROPHILS PERCENT AUTO 67 % (41-73); Platelet Count 736 K/mm3 (150-400); RDW Coefficient Variation 15.7 % (11.7-14.2); RDW Standard Deviation 51.8 fL (35.1-46.3); Red Blood Cell Count 3.64 M/mm3 (3.80-5.20); White Blood Cell Count 8.54 K/mm3 (4.00-11.30)
--- NOTE | 2018-08-03 05:27 | NUR ---
SHIFT SUMMARY: PATIENT REMAINED STABLE THROUGHOUT SHIFT, SLEPT MOST OF THE NIGHT. HEART RHYTHM REMAINED ON AFIB DURING SHIFT HEART RATE AT 100'S. PATIENT IS SITTING ON HER CHAIR AT THIS TIME, CALL LIGHT WITHIN REACH.
[2018-08-03 06:01] LABS: Albumin, Blood 1.8 g/dL (3.4-5.0); Anion Gap 8 mmol/L (6-16); Blood Urea Nitrogen 12 mg/dL (8-24); Bun/Creatinine Ratio 14.3 (12.0-20.0); CO2, Blood 24 mmol/L (21-32); Calcium, Blood 8.1 mg/dL (8.5-10.1); Chloride, Blood 105 mmol/L (98-108); Creatinine, Blood 0.84 mg/dL (0.40-1.00); Glomerular Filtration Rate >60 (60-); Glucose, Blood 82 mg/dL (70-99); Phosphorus, Blood 2.7 mg/dL (2.5-4.9); Potassium, Blood 3.3 mmol/L (3.5-5.5); Sodium, Blood 137 mmol/L (136-145)
--- NOTE | 2018-08-03 07:05 | NUR ---
RECVD REPORT FROM PREVIOUS RN AND STUDENT, PT SLEEPING IN BED, CALL LIGHT WITHIN REACH, BED RAILS UP X 2, BED IN LOWEST POSITION
--- NOTE | 2018-08-03 10:00 | NUR ---
DR BONDS TO ROUND ON PT, ORDERS GIVEN
--- NOTE | 2018-08-03 13:00 | NUR ---
gave bedside report to NHUNG Hunter and nursing officer radha Mariano transferred to surgical unit room 229
--- NOTE | 2018-08-03 13:18 | NUR ---
TRANSFER PT TRANSFER FROM PCU AT 1311.REPORT RECEIVED FROM PCU NURSE. PT ALERT AND ORIENTED, NO SOB. TELE IN PLACE.
--- NOTE | 2018-08-03 15:39 | NUR ---
PT REMOVED FROM TELE FOR SHOWER AT APPROX 1530 AFIB 101 PER CLIENT CARE CONSULTANT PLACED BACK ON TELE AT APPROX 1540 AFIB 115-120 PER CLIENT CARE CONSULTANT. PT TOLERATED SHOWER AND AMBULATION WELL. NO SOB, NO C/O OF LIGHTHEADEDNESS OR DIZZINESS.
--- NOTE | 2018-08-03 17:20 | NUR ---
SHIFT SUMMARY PT TRANSFERED FROM PCU. TELE IN PLACE AFIB 104-115 THROUGHOUT THE SHIFT PER TRAILER BODY ASSEMBLER. PT AMBULATES WITH STBY TO BATHROOM. PT ALERT AND ORIENTED, NO COMPLAINTS OF DIZZINESS. NO COMPLAINTS OF CHEST PAIN AND SOB.
[2018-08-04 04:47] LABS: BASOPHILS ABSOLUTE AUTO 0.04 K/mm3 (0.00-0.23); BASOPHILS PERCENT AUTO 1 % (0-2); EOSINOPHILS ABSOLUTE AUTO 0.45 K/mm3 (0.00-0.68); EOSINOPHILS PERCENT AUTO 6 % (0-6); Hematocrit 31.7 % (33.0-51.0); Hemoglobin 9.4 g/dL (11.5-16.0); IMMATURE GRAN ABSOLUTE AUTO 0.13 K/mm3 (0.00-0.10); IMMATURE GRAN PERCENT AUTO 2 % (0-1); LYMPHOCYTES ABSOLUTE AUTO 1.92 K/mm3 (0.84-5.20); LYMPHOCYTES PERCENT AUTO 26 % (21-46); MONOCYTES ABSOLUTE AUTO 0.49 K/mm3 (0.16-1.47); MONOCYTES PERCENT AUTO 7 % (4-13); Mean Corpuscular HGB 27.5 pg (26.0-34.0); Mean Corpuscular HGB Conc 29.7 g/dL (31.5-36.5); Mean Corpuscular Volume 93 fL (80-100); NEUTROPHILS ABSOLUTE AUTO 4.49 K/mm3 (1.96-9.15); NEUTROPHILS PERCENT AUTO 60 % (41-73); Platelet Count 690 K/mm3 (150-400); RDW Coefficient Variation 15.7 % (11.7-14.2); RDW Standard Deviation 52.9 fL (35.1-46.3); Red Blood Cell Count 3.42 M/mm3 (3.80-5.20); White Blood Cell Count 7.52 K/mm3 (4.00-11.30)
[2018-08-04 05:03] LABS: Bun/Creatinine Ratio 11.4 (12.0-20.0); Creatinine, Blood 0.97 mg/dL (0.40-1.00); Potassium, Blood 3.4 mmol/L (3.5-5.5)
--- NOTE | 2018-08-04 06:10 | NUR ---
SUMMARY: PT IS POD9 FOR R NIRAV COLECTOMY, NO ACUTE CHANGE TONIGHT. VSS. TELE WNL, AFIB, HR 80-90'S. SURGICAL SITE WNL, PT IS UP WITH SBA, FWW. WEAKNESS IN RLE. PT DENIES PAIN, NAUSEA. DENIES PASSING GAS AND NO BM TONIGHT. NO ACUTE SAFETY CONCERNS AT THIS TIME.
--- NOTE | 2018-08-04 18:14 | NUR ---
SHIFT SUMMARY PT A&OX4, VSS, TELE AFIB @ 100. POD9 R HEMICOLECTOMY, PT REP PASSING FLATUS, DENIES BM TODAY. DENIES PAIN. DENIES N&V, BALTAZAR REG DIET. SL. C/O RLE WEAKNESS/SWELLING BLE, SURGEON AWARE. AMB W/FWW SBA TO BRP AND HALLWAYS, UP TO CHAIR. VOIDING WELL. WCTM & TX PER EMAR UNTIL REPORT GIVEN TO ONCOMING NOC RN.
--- NOTE | 2018-08-05 04:06 | NUR ---
SHIFT SUMMARY PT A&O X4 T/O SHIFT. POD#10 R HEMICOLECTOMY; ABD SOFT; BTX4; MIDLINE ABD INCISION OPEN TO AIR, NO REDNESS OF DRAINAGE NOTED. RLE SWELLING PERSISTS; PT C/O NUMBNESS. UP WITH SBA AND FWW. TELEMETRY IN PLACE; A FIB BETWEEN PER PACKAGE HANDLER. CALL LIGHT IN REACH; PT DEMONSTRATES USE. WCTM UNTIL REPORT TO DAY SHIFT RN.
[2018-08-05 05:48] LABS: BASOPHILS ABSOLUTE AUTO 0.04 K/mm3 (0.00-0.23); BASOPHILS PERCENT AUTO 0 % (0-2); EOSINOPHILS ABSOLUTE AUTO 0.49 K/mm3 (0.00-0.68); EOSINOPHILS PERCENT AUTO 5 % (0-6); Hematocrit 32.9 % (33.0-51.0); Hemoglobin 9.6 g/dL (11.5-16.0); IMMATURE GRAN ABSOLUTE AUTO 0.12 K/mm3 (0.00-0.10); IMMATURE GRAN PERCENT AUTO 1 % (0-1); LYMPHOCYTES ABSOLUTE AUTO 1.72 K/mm3 (0.84-5.20); LYMPHOCYTES PERCENT AUTO 19 % (21-46); MONOCYTES ABSOLUTE AUTO 0.54 K/mm3 (0.16-1.47); MONOCYTES PERCENT AUTO 6 % (4-13); Mean Corpuscular HGB 27.2 pg (26.0-34.0); Mean Corpuscular HGB Conc 29.2 g/dL (31.5-36.5); Mean Corpuscular Volume 93 fL (80-100); Mean Platelet Volume 10.5 fL (9.1-12.4); NEUTROPHILS ABSOLUTE AUTO 6.35 K/mm3 (1.96-9.15); NEUTROPHILS PERCENT AUTO 69 % (41-73); Platelet Count 702 K/mm3 (150-400); RDW Coefficient Variation 16.2 % (11.7-14.2); RDW Standard Deviation 54.6 fL (35.1-46.3); Red Blood Cell Count 3.53 M/mm3 (3.80-5.20); White Blood Cell Count 9.26 K/mm3 (4.00-11.30)
[2018-08-05 06:19] LABS: Anion Gap 8 mmol/L (6-16); Blood Urea Nitrogen 13 mg/dL (8-24); Bun/Creatinine Ratio 14.1 (12.0-20.0); CO2, Blood 25 mmol/L (21-32); Calcium, Blood 8.1 mg/dL (8.5-10.1); Chloride, Blood 108 mmol/L (98-108); Creatinine, Blood 0.92 mg/dL (0.40-1.00); Glomerular Filtration Rate >60 (60-); Glucose, Blood 84 mg/dL (70-99); Potassium, Blood 3.4 mmol/L (3.5-5.5); Sodium, Blood 141 mmol/L (136-145)
--- NOTE | 2018-08-05 14:33 | NUR ---
REPORT CALLED TO MI AT [facility]. SHE WAS NOTIFIED THAT PT'S LAST BM WAS [address] AMADO WAS ALSO NOTIFIED AND NO ADDITIONAL BOWEL MEDICATIONS WERE ORDERED. PT IS PASSING FLATUS AND DENIES NAUSEA.
--- NOTE | 2018-08-05 14:36 | NUR ---
HARLEEN REMOVED PER DR. AMADO. STERI STRIPS PLACED OVER INCISION.
--- NOTE | 2018-08-05 17:00 | NUR ---
DISCHARGED PT DISCHARGED TO [facility] AT APPROXIMATELY 1325.
== END 2018-08-05 15:25 | DRG 330 ==
LOC: ER 09:56 → ERHOLD 11:13 → PCU 11:13 → SURS 11:13 → PCU 17:07 → SURS 07-26 15:30 → PCU 07-30 18:55 → SURS 08-03 13:11
PROVIDERS: Emergency Medicine; Family Medicine; Internal Medicine Endocrinology, Diabetes & Metabolism; Internal Medicine Gastroenterology; Student in an Organized Health Care Education/Training Program; Surgery; ADMIT Hospitalist
PROC: 30233N1 Transfusion of Nonautologous Red Blood Cells into Peripheral Vein, Percutaneous Approach (ICD-10-PCS; 2018-07-22)
PROC: 0DBB8ZX Excision of Ileum, Via Natural or Artificial Opening Endoscopic, Diagnostic (ICD-10-PCS; 2018-07-24)
PROC: 0DB68ZX Excision of Stomach, Via Natural or Artificial Opening Endoscopic, Diagnostic (ICD-10-PCS; 2018-07-24)
PROC: 0DB78ZX Excision of Stomach, Pylorus, Via Natural or Artificial Opening Endoscopic, Diagnostic (ICD-10-PCS; 2018-07-24)
PROC: 0DTF0ZZ Resection of Right Large Intestine, Open Approach (ICD-10-PCS; 2018-07-26)
PROC: 0D1B0Z4 Bypass Ileum to Cutaneous, Open Approach (ICD-10-PCS; 2018-07-26)
PROC: 0DBH8ZX Excision of Cecum, Via Natural or Artificial Opening Endoscopic, Diagnostic (ICD-10-PCS; principal; 2018-07-26 08:00)
DX: C18.0 Malignant neoplasm of cecum (principal); D62 Acute posthemorrhagic anemia; K91.89 Other postprocedural complications and disorders of digestive system; K56.7 Ileus, unspecified; E87.1 Hypo-osmolality and hyponatremia; E78.5 Hyperlipidemia, unspecified; I48.0 Paroxysmal atrial fibrillation; Z79.01 Long term (current) use of anticoagulants; I12.9 Hypertensive chronic kidney disease with stage 1 through stage 4 chronic kidney disease, or unspecified chronic kidney disease; N18.3 Chronic kidney disease, stage 3 (moderate); I25.10 Atherosclerotic heart disease of native coronary artery without angina pectoris; E88.09 Other disorders of plasma-protein metabolism, not elsewhere classified; I25.2 Old myocardial infarction; D63.0 Anemia in neoplastic disease; K22.2 Esophageal obstruction; N83.201 Unspecified ovarian cyst, right side
CPT/HCPCS: 36415; 36430; 74176; 80048; 80053; 80069; 82378; 83540; 83550; 83735; 84100; 85014; 85018; 85025; 85045; 86850; 86900; 86901; 86923; 88305; 88309; 88341; 88342; 93005; 93010; 96374; 97110; 97116; 97162; 97166; 97530; 97535; 99285-25; A9270-GY; C9113; J0295; J0360; J1100; J1650; J1885; J2250; J2405; J2550; J2704; J2710; J2765; J2916; J3010; J3480; J7030; J7120; P9016; V2790

== ENCOUNTER 2018-08-14 22:26 | Inpatient (IN) | payer MEDICARE, OTHER ==
[~2018-08-14] VITALS: Ht 167.6 cm; Wt 65.6 kg
[2018-08-14 22:47] LABS: BASOPHILS ABSOLUTE AUTO 0.01 K/mm3 (0.00-0.23); BASOPHILS PERCENT AUTO 0 % (0-2); EOSINOPHILS PERCENT AUTO 0 % (0-6); Hematocrit 28.1 % (33.0-51.0); Hemoglobin 8.7 g/dL (11.5-16.0); IMMATURE GRAN ABSOLUTE AUTO 0.05 K/mm3 (0.00-0.10); IMMATURE GRAN PERCENT AUTO 1 % (0-1); LYMPHOCYTES ABSOLUTE AUTO 0.87 K/mm3 (0.84-5.20); LYMPHOCYTES PERCENT AUTO 11 % (21-46); MONOCYTES ABSOLUTE AUTO 0.24 K/mm3 (0.16-1.47); MONOCYTES PERCENT AUTO 3 % (4-13); Mean Corpuscular HGB 27.7 pg (26.0-34.0); Mean Corpuscular Volume 90 fL (80-100); Mean Platelet Volume 10.7 fL (9.1-12.4); NEUTROPHILS ABSOLUTE AUTO 6.95 K/mm3 (1.96-9.15); NEUTROPHILS PERCENT AUTO 86 % (41-73); Platelet Count 318 K/mm3 (150-400); RDW Coefficient Variation 16.3 % (11.7-14.2); RDW Standard Deviation 53.6 fL (35.1-46.3); Red Blood Cell Count 3.14 M/mm3 (3.80-5.20); White Blood Cell Count 8.12 K/mm3 (4.00-11.30)
[2018-08-14] MEDS ORDERED: DOCU100 PO (22:57)
[2018-08-14] MEDS ORDERED: FOLI1 PO (22:58)
[2018-08-14] MEDS ORDERED: ATOR40TA PO (22:58)
[2018-08-14] MEDS ORDERED: LOSA25 PO (22:58)
[2018-08-14] MEDS ORDERED: Vitamin D400 UNI1 PO (22:59)
[2018-08-14] MEDS ORDERED: ELIQUIS5 MG PO (22:59)
[2018-08-14] MEDS ORDERED: METO50 PO (22:59)
[2018-08-14] MEDS ORDERED: Feverall650 MG RC (23:00)
[2018-08-14] MEDS ORDERED: CYCL10 PO (23:00)
[2018-08-14] MEDS ORDERED: Norco 5-325 Ta1 EACH PO (23:01)
[2018-08-14] MEDS ORDERED: ONDA4ODT MM (23:01)
[2018-08-14 23:06] LABS: Albumin, Blood 1.9 g/dL (3.4-5.0); Albumin/Globulin Ratio 0.5 (0.8-1.8); Bilirubin, Total 0.3 mg/dL (0.1-1.0); Bun/Creatinine Ratio 16.8 (12.0-20.0); Calcium, Blood 7.8 mg/dL (8.5-10.1); Creatinine, Blood 1.01 mg/dL (0.40-1.00); Potassium, Blood 3.2 mmol/L (3.5-5.5); Total Protein, Blood 5.9 g/dL (6.4-8.2)
[2018-08-15 00:43] LABS: Bilirubin, Urine Neg (Neg); Blood, Urine 3+ (Neg); Glucose Qualitative, Urine Neg (Neg); Ketones, Urine Neg (Neg); Leukocyte Esterase, Urine Neg (Neg); Nitrite, Urine Neg (Neg); Protein, Urine 3+ (Neg); Specific Gravity, Urine 1.015 (1.003-1.022); Urobilinogen, Urine NORM (Normal)
[2018-08-15 00:47] LABS: Troponin I 0.115 ng/mL (0.000-0.040)
[2018-08-15 00:47] LABS: PCO2 Arterial 35.9 mmHg (35-45); PO2 Arterial 65.1 mmHg (80-100); pH Blood Arterial 7.47 (7.35-7.45)
[2018-08-15 00:55] LABS: Appearance, Urine Clear (Clear); Color, Urine Yellow (P-Yellow)
[2018-08-15 00:56] LABS: Amorphous Light (0-Heavy); Bacteria Rare /hpf; Mucus Light (0-Heavy); Red Blood Cells, Urine 0-2 /hpf (0-2); Squamous Epithelial Cells Not Seen /hpf (Few); White Blood Cells, Urine Rare /hpf (0-5)
[2018-08-15 02:05] LABS: Adenovirus Not Detected (NOT DETECT); Bordetella pertussis Not Detected (NOT DETECT); Chlamydophila pneumoniae Not Detected (NOT DETECT); Coronavirus 229E Not Detected (NOT DETECT); Coronavirus HKU1 Not Detected (NOT DETECT); Coronavirus NL63 Not Detected (NOT DETECT); Coronavirus OC43 Not Detected (NOT DETECT); Human Metapneumovirus Not Detected (NOT DETECT); Human Rhinovirus/Enterovirus Not Detected (NOT DETECT); Influenza A Not Detected (NOT DETECT); Influenza A/2009-H1 Not Detected (NOT DETECT); Influenza A/H1 Not Detected (NOT DETECT); Influenza A/H3 Not Detected (NOT DETECT); Influenza B Not Detected (NOT DETECT); Mycoplasma pneumoniae Not Detected (NOT DETECT); Parainfluenza Virus 1 Not Detected (NOT DETECT); Parainfluenza Virus 2 Not Detected (NOT DETECT); Parainfluenza Virus 3 Not Detected (NOT DETECT); Parainfluenza Virus 4 Not Detected (NOT DETECT); Respiratory Syncytial Virus Not Detected (NOT DETECT)
--- NOTE | 2018-08-15 03:30 | NUR ---
ADMIT PT ARRIVED TO ICU 5 AT 0245 VIA ER BED. PT IS AWAKE, ALERT, AND ANXIOUS UPON ARRIVAL. PT ORIENTED TO SELF AND FOLLOWING DIRECTIONS, BUT FORGETFUL. PT IS ANXIOUS AND SHIVERING. PT FEBRILE WITH TEMP >101. TYLENOL SUPPOSITORY GIVEN. PT INITIALLY ON 2L O2 NC. PT PLACED ON BIPAP WITH 2L O2 BLEED IN. KCL STARTED PER ORDERS. PT INCONTINENT OF URINE, ATTENDS IN PLACE. NO FAMILY AT BEDSIDE. WILL CONTINUE TO MONITOR.
--- NOTE | 2018-08-15 05:41 | NUR ---
SHIFT SUMMARY NO ACUTE CHANGES THIS AM. PT REMAINS ON BIPAP WITH 2L O2 BLEED IN. PT RESTING CALMLY AFTER 0.5 MG IV ATIVAN. VITAL SIGNS HAVE REMAINED STABLE AND TEMP IMPROVING AFTER TYLENOL SUPPOSITORY. KCL IVPB INFUSING AT THIS TIME. ATTENDS IN PLACE. WILL CONTINUE TO MONITOR AND REPORT OFF TO ONCOMING RN.
--- NOTE | 2018-08-15 06:41 | NUR ---
HEART RATE PT HR NOTED TO BE AFIB 140-160'S AT THIS TIME. CALLED DR TRAMMELL. ORDERS FOR 5 MG IV LOPRESSOR NOW, AND REPEAT ANOTHER 5 MG IV LOPRESSOR IN 30 MINS IF PT REMAINS TACHYCARDIC.
[2018-08-15 08:17] LABS: Hematocrit 29.8 % (33.0-51.0); Mean Corpuscular HGB 26.9 pg (26.0-34.0); Mean Corpuscular HGB Conc 30.2 g/dL (31.5-36.5); Mean Corpuscular Volume 89 fL (80-100); Mean Platelet Volume 10.4 fL (9.1-12.4); Platelet Count 290 K/mm3 (150-400); RDW Coefficient Variation 16.3 % (11.7-14.2); RDW Standard Deviation 53.8 fL (35.1-46.3); Red Blood Cell Count 3.34 M/mm3 (3.80-5.20); White Blood Cell Count 6.85 K/mm3 (4.00-11.30)
[2018-08-15 08:27] LABS: International Normalized Ratio 1.32; Prothrombin Time Results 13.6 Sec (9.7-11.5)
--- NOTE | 2018-08-15 08:30 | NUR ---
PT AWAKE, ASKING FOR ATTENDS CHANGE.
[2018-08-15 08:37] LABS: Albumin, Blood 1.9 g/dL (3.4-5.0); Albumin/Globulin Ratio 0.5 (0.8-1.8); Bilirubin, Total 0.3 mg/dL (0.1-1.0); Bun/Creatinine Ratio 14.3 (12.0-20.0); Calcium, Blood 7.8 mg/dL (8.5-10.1); Creatinine, Blood 1.05 mg/dL (0.40-1.00); Globulin, Blood 4.2 g/dL (2.2-4.0); Potassium, Blood 3.4 mmol/L (3.5-5.5); Total Protein, Blood 6.1 g/dL (6.4-8.2)
[2018-08-15 08:43] LABS: CPK Creatine Kinase 232 U/L (26-193); Troponin I 0.299 ng/mL (0.000-0.040)
[2018-08-15 09:20] LABS: Creatine Kinase MB <1.0 ng/mL (0.0-3.6); Creatine Kinase MB Index Unable to Calculate (0.0-4.0)
--- NOTE | 2018-08-15 11:15 | NUR ---
HEART RATE REMAINS ELEVATED - DISCUSSION WITH DR YOUNGBLOOD HEART RATE AND RHYTHM REMAINS AFIB RVR WITH RATE UP TO 140-150. BLOOD PRESSURE DOWN TO 80/50'S. CONSULT FOR CARDIOLOGY PLACED. DR ELENA PAGED. DR YOUNGBLOOD IS WANTING PATIENT TO BE EVALUATED FOR CARDIOVERSION. PT DENIES COMPLAINTS OF ANY DIZZINESS ETC. STATES DOES NOT FEEL WHEN HEART GOES FAST.
--- NOTE | 2018-08-15 11:45 | NUR ---
DR ELENA AT BEDSIDE, PREPARATION FOR CARDIOVERSION PT REMAINS IN AFIB RVR WITH RATE 150'S. PREPARING FOR CARDIOVERSION AT BEDSIDE. RT MARTINEZ AWARE. PT AGREEABLE TO PROCEDURE.
--- NOTE | 2018-08-15 12:00 | NUR ---
CARDIOVERSION PERFORMED BY DR ELENA PT GIVEN FENTANYL AND VERSED, SYNCHRONIZED CARDIOVERSION PERFORMED THREE TIMES WITH 150 JOULES, 200 JOULES, AND 200 JOULES. ALL SHOCKS UNSUCCESSFUL. ORDERS FOR AMIODARONE GTT INITIATED. PT REMAINS STABLE.
--- NOTE | 2018-08-15 15:34 | NUR ---
PT UP IN CHAIR, AMIODARONE GTT INFUSING REMAINS IN AFIB RVR, RATE 110-130'S PT ASYMPTOMATIC. SON HERE FROM [place], PT STATES SHE WOULD LOVE SOME RICE AND BEANS FROM [employer]. I TOLD HIM THAT WAS FINE TO BRING THAT TO HER.
[2018-08-15 16:15] LABS: Troponin I 0.166 ng/mL (0.000-0.040)
[2018-08-15 16:29] LABS: Creatine Kinase MB 1.1 ng/mL (0.0-3.6); Creatine Kinase MB Index 0.4 (0.0-4.0)
--- NOTE | 2018-08-15 17:23 | NUR ---
DR WEBBER IN TO SEE PATIENT
--- NOTE | 2018-08-15 18:14 | NUR ---
PT BACK TO BED SAT UP IN RECLINER FOR 3 HOURS, THEN BACK TO BED. REMAINS WEAK, 1 PERSON ASSIST. DOES NOT WANT HER MEAL BUT INSTEAD REQUESTS ICE CREAM. HR REMAINS 130S WILL GIVE REPORT TO ONCOMING SHIFT
[2018-08-15] MEDS ORDERED: Milk Of Ma400 MG/5 M PO (19:30)
[2018-08-15] MEDS ORDERED: BISA10S PR (19:39)
[2018-08-15] MEDS ORDERED: CVS DISPOSABLE399 ML PR (19:41)
[2018-08-15] MEDS ORDERED: ACET120S PR (19:43)
--- NOTE | 2018-08-15 20:00 | NUR ---
ASSESSMENT PT SLEEPING, AWAKENS EASILY. DENIES PAIN OR PRESSURE. LUNGS CLEAR BUT DECREASED ON 2 LITERS O2 VIA NC. DENIES SOB OR COUGH. STATES,"I'M FEELING MUCGH BETTER". HEART RATE IRREGULAR-AFIB WITH RVR. PT ON AMIODARONE GTT AT 0.5MG/MIN. BP LOW SPOKE WITH DR WEBBER AND WE ARE HOLDING LOPRESSOR TONIGHT AND GIVING ALBUMIN. NS AT 10 ML/HR. BT+ ABD SOFT AND NONTENDER. DENIES N/V. ATTENDS CD&I. PT BACK TO SLEEP QUICKLY.
[2018-08-15] MEDS ORDERED: Ferus150 MG PO (20:36)
--- NOTE | 2018-08-16 00:42 | NUR ---
TEMP PT TEMP UP TO 101.7, PT ALREADY MED WITH TYLENOL. CALL TO DR TRAMMELL, ORDER RECEIVED FOR IBUPROFEN 400MG PO Q8HR PRN FOR 3 DOSES
[2018-08-16 03:29] LABS: BASOPHILS ABSOLUTE AUTO 0.01 K/mm3 (0.00-0.23); BASOPHILS PERCENT AUTO 0 % (0-2); EOSINOPHILS PERCENT AUTO 0 % (0-6); Hematocrit 29.6 % (33.0-51.0); Hemoglobin 8.8 g/dL (11.5-16.0); Mean Corpuscular HGB 26.6 pg (26.0-34.0); Mean Corpuscular HGB Conc 29.7 g/dL (31.5-36.5); Mean Corpuscular Volume 89 fL (80-100); Mean Platelet Volume 10.7 fL (9.1-12.4); Platelet Count 258 K/mm3 (150-400); RDW Coefficient Variation 16.4 % (11.7-14.2); RDW Standard Deviation 53.9 fL (35.1-46.3); Red Blood Cell Count 3.31 M/mm3 (3.80-5.20); White Blood Cell Count 6.11 K/mm3 (4.00-11.30)
[2018-08-16 03:31] LABS: IMMATURE GRAN ABSOLUTE AUTO 0.04 K/mm3 (0.00-0.10); IMMATURE GRAN PERCENT AUTO 1 % (0-1); LYMPHOCYTES ABSOLUTE AUTO 0.64 K/mm3 (0.84-5.20); LYMPHOCYTES PERCENT AUTO 11 % (21-46); MONOCYTES ABSOLUTE AUTO 0.07 K/mm3 (0.16-1.47); MONOCYTES PERCENT AUTO 1 % (4-13); NEUTROPHILS ABSOLUTE AUTO 5.35 K/mm3 (1.96-9.15); NEUTROPHILS PERCENT AUTO 88 % (41-73)
[2018-08-16 03:50] LABS: Albumin, Blood 2.1 g/dL (3.4-5.0); Anion Gap 8 mmol/L (6-16); Blood Urea Nitrogen 15 mg/dL (8-24); Bun/Creatinine Ratio 12.9 (12.0-20.0); CO2, Blood 27 mmol/L (21-32); Calcium, Blood 7.7 mg/dL (8.5-10.1); Chloride, Blood 96 mmol/L (98-108); Creatinine, Blood 1.16 mg/dL (0.40-1.00); Glomerular Filtration Rate 48 (60-); Glucose, Blood 91 mg/dL (70-99); Phosphorus, Blood 3.1 mg/dL (2.5-4.9); Potassium, Blood 2.9 mmol/L (3.5-5.5); Sodium, Blood 131 mmol/L (136-145); Troponin I 0.108 ng/mL (0.000-0.040)
[2018-08-16 05:37] LABS: BAND PERCENT MAN 2 % (0-8); BASOPHILS PERCENT MAN 0 % (0-2); EOSINOPHILS PERCENT MAN 0 % (0-6); LYMPHOCYTES PERCENT MAN 5 % (21-46); MONOCYTES ABSOLUTE MAN 0.06 K/mm3 (0.16-1.47); MONOCYTES PERCENT MAN 1 % (4-13); NEUTROPHILS ABSOLUTE MAN 5.74 K/mm3 (1.96-9.15); SEG NEUTROPHILS PERCENT MAN 92 % (41-73); TOTAL CELLS COUNTED 100
--- NOTE | 2018-08-16 06:03 | NUR ---
SHIFT SUMMARY PT RESTING QUIELTY. DENIES PAIN OR DISCOMFORT. TEMP UP TO 101.7 DURING THE NIGHT. MED WITH TYLENOL AND ADVIL, NOW AFEBRILE. LUNGS COARSE AT TIMES ON 2 LITERS O2 VIA NC. HEART RATE CONT AFIB WITH RVR IN THE 110-130'S. PT ON AMIODARONE GTT AT 0.5 MG/HR. LOPRESSOR HELD DURING THE NIGHT FOR HYPOTENSION. DR WEBBER ORDERED ALBUMIN (GIVEN) FOR HYPOTENSION. BP IMPROVED AFTER ALBUMIN. PT UP TO BSC WITH ONE ASSIST. INCONT URINE. ATTENDS CHANGED. POTASSIUM DOWN TO 2.9, KCL 40MEQ INFUSING. PT UNABLE TO TOLERATED POTASSIUM INFUSING, SLOWED INFUSION DOWN AND INCREASED RATE OF NS TKO TO 25 ML/HR. PT EXPRESSED ABLE TO TOLERATED BETTER. REPORT TO ON COMING NURSE.
--- NOTE | 2018-08-16 09:08 | NUR ---
0710-ASSUMED CARE OF PT. PT IS ALERT AND ORIENTED. FLAT AFFECT. PT IS ON AMIODARONE DRIP @ 0.5MG/MIN. STILL WITH RAPID HR FROM 109-120s. PT IS FOLLOWING COMMANDS. 0900-[employer] STILL AT BEDSIDE DOING ECHOCARDIOGRAM.
--- NOTE | 2018-08-16 10:00 | NUR ---
PT'S SON STATED IF PT CAN HAVE ANTIANXIETY MEDICATION PT HAS BEEN EXPRESSING TO HIM REGARDING WORRIES AT HOME. PT DOES NOT LOOK ANXIOUS. PT HAS FLAT AFFECT. TALKED TO DR. PARKER REGARDING THIS CONCERN NO ORDERS RECEIVED. HE STATED HE WILL COME BY AND SEE PATIENT.
--- NOTE | 2018-08-16 10:39 | NUR ---
Echocardiogram completed.
--- NOTE | 2018-08-16 12:10 | NUR ---
PT IS SITTING ON THE CHAIR AT THIS TIME. PT WAS ABLE TO TRANSFER FROM THE BED TO THE CHAIR WITH 1 PERSON ASSISST. PT'S SON AND FRIEND AT BEDSIDE AT THIS TIME.
--- NOTE | 2018-08-16 13:27 | NUR ---
Pt do not want a visitor, so I wished her all the best of the day . tt
--- NOTE | 2018-08-16 15:23 | NUR ---
DR. PARKER CAME BY TO SEE PATIENT. UPDATED HIM OF PT'S STATUS.
--- NOTE | 2018-08-16 18:06 | NUR ---
SHIFT SUMMARY: PT IS ALERT AND ORIENTED. PT DENIES PAIN ALL DAY. PT HAS BEEN USING HER FLUTTER VALVE WHICH HAS SLIGHTLY IMRPOVED HER BREATH SOUNDS. AFEBRILE. PT WAS ABLE TO GET OUT OF BED TO THE CHAIR FOR AT LEASR 2 HOURS. PT WAS WHEELED OUT OF ICU TO SEE DIFFERENT SCENERY. PT AFEBRILE. PT/OT WAS ORDERED FOR THIS PATIENT. AMIODARONE DRIP WAS STOPPED @ AROUND 1300.
--- NOTE | 2018-08-16 19:30 | NUR ---
ASSUMED CARE OF PT REPORT RCV'D FROM POLINA WINKLER RN. PT ALERT AND ORIENTED SITTING IN BED. PT ON 2L NC AND HAS COARSE BREATH SOUNDS WITH EXPIRATORY WHEEZES. PT STATES SHE IS ANXIOUS AND IS REQUESTING XANAX. PT HAS TEMP OF 99.4. NS RUNNING TKO. SEE FULL SHIFT ASSESSMENT.
--- NOTE | 2018-08-17 06:22 | NUR ---
SHIFT SUMMARY PT REMAINED EXTREMELY ANXIOUS OVERNIGHT AND UNABLE TO FALL ASLEEP DESPITE 2 DOSES OF 0.5 MG ATIVAN AND REPOSITIONING FOR COMFORT. PT REMAINS ON 2L NC, RR IN THE LOW TO MID 40'S, HR VARIED BETWEEN 110-160. AUDIBLE WHEEZING HEARD, COARSE THROUGHOUT WITH CRACKLES AND EXPIRATORY WHEEZES. PT HAS BEEN INCONTINENT OF URINE WITH ONE EPISODE OF WATERY DIARRHEA. WILL REPORT TO DAYSVAFT NURSE.
--- NOTE | 2018-08-17 08:30 | NUR ---
0700-ASSUMED CARE OF PT. PT IS SLEEPING SOUNDLY AT THIS TIME. WILL ALLOW PT TO SLEEP IN. 0830-AWAKENED PT. PT IS ALERT AND ORIENTED, FLAT AFFECT. DENIES PAIN AT THIS TIME. PT STILL ON AFIB, ERRATIC HR FROM BELOW 100 TO 120s.
--- NOTE | 2018-08-17 09:30 | NUR ---
PHYSICAL THERAPIST CAME BY TO WORK WITH PATIENT. PT IS CURRENTLY IN THE CHAIR AT THIS TIME.
--- NOTE | 2018-08-17 13:00 | NUR ---
1100-PT WAS HELPED BACK TO BED. PT REFUSED TO EAT. PT HAS DECREASED APPETITE. 1300-PT'S SON AT BEDSIDE. UPDATED HIM OF PT'S STATUS.
[2018-08-17 14:58] LABS: BASOPHILS ABSOLUTE AUTO 0.01 K/mm3 (0.00-0.23); BASOPHILS PERCENT AUTO 0 % (0-2); EOSINOPHILS PERCENT AUTO 0 % (0-6); Hematocrit 35.2 % (33.0-51.0); Hemoglobin 10.7 g/dL (11.5-16.0); Mean Corpuscular HGB 27.3 pg (26.0-34.0); Mean Corpuscular HGB Conc 30.4 g/dL (31.5-36.5); Mean Corpuscular Volume 90 fL (80-100); Mean Platelet Volume 10.7 fL (9.1-12.4); Platelet Count 317 K/mm3 (150-400); RDW Coefficient Variation 16.3 % (11.7-14.2); RDW Standard Deviation 53.6 fL (35.1-46.3); Red Blood Cell Count 3.92 M/mm3 (3.80-5.20); White Blood Cell Count 7.62 K/mm3 (4.00-11.30)
[2018-08-17 14:59] LABS: IMMATURE GRAN ABSOLUTE AUTO 0.06 K/mm3 (0.00-0.10); IMMATURE GRAN PERCENT AUTO 1 % (0-1); LYMPHOCYTES ABSOLUTE AUTO 0.71 K/mm3 (0.84-5.20); LYMPHOCYTES PERCENT AUTO 9 % (21-46); MONOCYTES ABSOLUTE AUTO 0.14 K/mm3 (0.16-1.47); MONOCYTES PERCENT AUTO 2 % (4-13); NEUTROPHILS PERCENT AUTO 88 % (41-73)
[2018-08-17 15:15] LABS: Albumin, Blood 1.9 g/dL (3.4-5.0); Anion Gap 7 mmol/L (6-16); Blood Urea Nitrogen 16 mg/dL (8-24); Bun/Creatinine Ratio 13.9 (12.0-20.0); CO2, Blood 26 mmol/L (21-32); Chloride, Blood 91 mmol/L (98-108); Creatinine, Blood 1.15 mg/dL (0.40-1.00); Glomerular Filtration Rate 48 (60-); Glucose, Blood 111 mg/dL (70-99); Magnesium, Blood 1.4 mg/dL (1.6-2.4); Phosphorus, Blood 3.8 mg/dL (2.5-4.9); Potassium, Blood 3.9 mmol/L (3.5-5.5); Sodium, Blood 124 mmol/L (136-145)
--- NOTE | 2018-08-17 18:00 | NUR ---
1500- PT SEEN BY DR. PARKER. UPDATED HIM OF PT'S STATUS. HE ORDERED TO START PT ON CARDIZEM DRIP, HE WAS INFORMED THAT PT IS ALLERGIC TO CALCIUM CHANNEL SAMANTHA. HE WENT TO TALK TO PT AND SON REGARDING WHAT TYPE OF REACTION PT GETS WITH DILTIAZEM, PT & SON IS UNAWARE. BUT HE DECIDED TO START THE DRIP DUE TO PT'S ELEVATED HR. INFORMED HIM TOO REGARDING CODE STATUS SINCE PT HAS POLST DNR. PER DR. PARKER HE HAD TALKED TO PT AND THAT PT WANTED TO BE FULL CODE AT THIS TIME. 1555-DILTIAZEM WAS STARTED @ THIS TIME @ 5MG/HR. 1644-DILTIAZEM DRIP WAS STOPPED PT WAS HYPOTENSIVE. SBP 77. 1800-PT'S BLOOD PRESSURE HAS IMPROVED. REFUSED TO EAT DINNER. HR STILL ERRATIC FROM LOW 100s-130s.
--- NOTE | 2018-08-17 19:30 | NUR ---
ASSUMED CARE OF PT, REPORT RCV'D FROM POLINA WINKLER RN. PT ALERT AND ORIENTED LAYING IN BED. PT ON 2L O2 VIA NC. WHEEZING HEARD THROUGHOUT AND PT TACHYPNEIC. PT HAS HAD PERIODS OF HYPOTENSION AND REMAINS TACHYCARDIC WITH HR IN THE 140'S-150'S. PT ANXIOUS AND REQUESTING XANAX TO HELP HER RELAX AND GET SOME SLEEP. SEE FULL SHIFT ASSESSMENT.
[2018-08-18 03:08] LABS: BASOPHILS ABSOLUTE AUTO 0.01 K/mm3 (0.00-0.23); BASOPHILS PERCENT AUTO 0 % (0-2); EOSINOPHILS PERCENT AUTO 0 % (0-6); Hemoglobin 10.3 g/dL (11.5-16.0); Mean Corpuscular HGB Conc 30.3 g/dL (31.5-36.5); Mean Corpuscular Volume 89 fL (80-100); Mean Platelet Volume 11.1 fL (9.1-12.4); Platelet Count 301 K/mm3 (150-400); RDW Coefficient Variation 16.1 % (11.7-14.2); RDW Standard Deviation 52.8 fL (35.1-46.3); Red Blood Cell Count 3.82 M/mm3 (3.80-5.20); White Blood Cell Count 9.41 K/mm3 (4.00-11.30)
[2018-08-18 03:09] LABS: IMMATURE GRAN ABSOLUTE AUTO 0.05 K/mm3 (0.00-0.10); IMMATURE GRAN PERCENT AUTO 1 % (0-1); LYMPHOCYTES ABSOLUTE AUTO 0.62 K/mm3 (0.84-5.20); LYMPHOCYTES PERCENT AUTO 7 % (21-46); MONOCYTES ABSOLUTE AUTO 0.09 K/mm3 (0.16-1.47); MONOCYTES PERCENT AUTO 1 % (4-13); NEUTROPHILS ABSOLUTE AUTO 8.64 K/mm3 (1.96-9.15); NEUTROPHILS PERCENT AUTO 92 % (41-73)
[2018-08-18 03:23] LABS: Albumin, Blood 1.7 g/dL (3.4-5.0); Anion Gap 10 mmol/L (6-16); Blood Urea Nitrogen 17 mg/dL (8-24); Bun/Creatinine Ratio 15.5 (12.0-20.0); CO2, Blood 23 mmol/L (21-32); Calcium, Blood 7.6 mg/dL (8.5-10.1); Chloride, Blood 94 mmol/L (98-108); Glomerular Filtration Rate 51 (60-); Glucose, Blood 85 mg/dL (70-99); Magnesium, Blood 1.6 mg/dL (1.6-2.4); Phosphorus, Blood 3.7 mg/dL (2.5-4.9); Potassium, Blood 3.8 mmol/L (3.5-5.5); Sodium, Blood 127 mmol/L (136-145)
--- NOTE | 2018-08-18 05:23 | NUR ---
SHIFT SUMMARY PT WAS ABLE TO REST WELL WITH NO ANXIETY AFTER 1 MG DOSE OF XANAX. PT HAD MULTIPLE PERIODS OF HYPOTENSION WITH A LOW SBP OF 74. PT MAINTAINED SATS IN THE MID 90'S WHILE ON 2L O2 BUT CONTINUES TO HAVE CRACKLES THROUGHOUT AND EXPIRATORY WHEEZES. PT AFEBRILE, CONTINUES TO BE IN AFIB WITH HR IN 140'S. PT COMPLAINS OF 8/10 PAIN IN HER LOWER ABDOMEN AND STATES THAT IT FEELS LIKE SHE "COUGHED TOO HARD AND HURT THE INCISION". PT HAS PAIN WITH PALPATION AND WITH REPOSITIONING. PT CONTINUES TO DISPLAY GENERALIZED WEAKNESS AND HAS DIFFICULTY ASSISTING IN REPOSITIONING AND CHANGING ATTENDS. WILL REPORT TO DAYSHIFT NURSE.
--- NOTE | 2018-08-18 10:30 | NUR ---
0700-ASSUMED CARE OF PT. PT IS ASLEEP. WILL ALLOW PT TO SLEEP IN A LITTLE. 0815-AWAKENED PT. PT IS ALERT AND ORIENTED. FOLLOWING COMMANDS. FLAT AFFECT. BORDERLINE BLOOD PRESSURE. PT IS STILL TACHYCARDIC @ 120s-130s. PT WAS HYPOTENSIVE YESTERDAY AFTER RECEIVING DILTIAZEM. 0840-PAGED DR. PARKER AT THIS TIME. 0857-INFORMED DR. PARKER THAT PT'S SBP IS BODERLLINE 80s-110s. HELD METOPROLOL WHICH DR. PARKER AGREED. HE ORDERED TO GIVE PT DIGOXIN FOR PT'S HR. 0930-PT WAS TRANSFERED TO ROOM PCU3. REPORT GIVEN TO NHUNG MULLIGAN.
--- NOTE | 2018-08-18 18:09 | NUR ---
SHIFT SUMMARY Assumed care of pt upon arrival to unit from ICU at 1033. Telephone report recieved from Janice HOOKER. Pt arrived on 2 LPM NC. Pt transferred from ICU bed to PCU bed using slider sheet and three staff. Assessment completed, agree with documented shift assessment. HR averaging between [address] Hawkins in to see pt. Pt reports abdominal pain. Pt NPO at this time, until CT abdomen completed tonight. Pt then to have a clear liquid diet. Pt has completed one container of RediCat prep. Lasix held due to BP parmeters. Bed in lowest position. Call light in reach. Pt denies need at this time. Will continue to closely monitor until care handoff and bedside report with oncoming RN.
--- NOTE | 2018-08-18 19:56 | NUR ---
Assumed care of pt at approx 1900. Pt states she is very anxious. Pt requesting anxiety medication and says "lock the door and don't let anyone come in". This RN explained to pt plan of care for the night, that this RN will be in throughout the night to manage care, and that this RN will bring anxiety medication per orders. Will continue to monitor.
[2018-08-19 03:53] LABS: Hematocrit 34.1 % (33.0-51.0); Hemoglobin 10.3 g/dL (11.5-16.0); Mean Corpuscular HGB 26.5 pg (26.0-34.0); Mean Corpuscular HGB Conc 30.2 g/dL (31.5-36.5); Mean Corpuscular Volume 88 fL (80-100); Mean Platelet Volume 10.4 fL (9.1-12.4); Platelet Count 312 K/mm3 (150-400); RDW Coefficient Variation 16.1 % (11.7-14.2); RDW Standard Deviation 52.2 fL (35.1-46.3); Red Blood Cell Count 3.88 M/mm3 (3.80-5.20); White Blood Cell Count 16.82 K/mm3 (4.00-11.30)
[2018-08-19 04:15] LABS: Albumin, Blood 1.5 g/dL (3.4-5.0); Anion Gap 8 mmol/L (6-16); Blood Urea Nitrogen 22 mg/dL (8-24); Bun/Creatinine Ratio 14.8 (12.0-20.0); CO2, Blood 25 mmol/L (21-32); Calcium, Blood 7.9 mg/dL (8.5-10.1); Chloride, Blood 94 mmol/L (98-108); Creatinine, Blood 1.49 mg/dL (0.40-1.00); Glomerular Filtration Rate 36 (60-); Glucose, Blood 87 mg/dL (70-99); Magnesium, Blood 1.7 mg/dL (1.6-2.4); Phosphorus, Blood 4.1 mg/dL (2.5-4.9); Potassium, Blood 3.9 mmol/L (3.5-5.5); Sodium, Blood 127 mmol/L (136-145)
[2018-08-19 05:16] LABS: BAND PERCENT MAN 6 % (0-8); BASOPHILS PERCENT MAN 0 % (0-2); EOSINOPHILS PERCENT MAN 0 % (0-6); LYMPHOCYTES ABSOLUTE MAN 0.33 K/mm3 (0.84-5.20); LYMPHOCYTES PERCENT MAN 2 % (21-46); MONOCYTES PERCENT MAN 0 % (4-13); NEUTROPHILS ABSOLUTE MAN 16.48 K/mm3 (1.96-9.15); SEG NEUTROPHILS PERCENT MAN 92 % (41-73); TOTAL CELLS COUNTED 100
--- NOTE | 2018-08-19 05:16 | NUR ---
PROVIDER CONTACTED PT WITH CRITICALLY HIGH LACTIC ACID OF 2.[address] TRAMMELL CONTACTED. NO ORDERS RECEIVED AT THIS TIME. WILL CONTINUE TO MONITOR FOR CHANGES IN PATIENT CONDITION.
--- NOTE | 2018-08-19 05:48 | NUR ---
Shift Summary Pt resting comfortably for second half of shift. Pt appears comfortable after urine drained via straight cath. Pt with two BM this shift. Pt incontinent of bowel and bladder, though pt was found retaining urine. Pt repositioned Q2 and tolerated well. Critical lab value of 2.7 lactic [address] recieved today. Dr. Hagan notifed and no new orders recieved at this time. 0430 VS: BP 99/61 RR 26 HR 92 02 95 2LNC T 97.1 Pt A&Ox4. Slow to respond. Flat affect. uses call light appropriately, makes needs known, bed in lowest, locked position. Attends in place, dry at this time. Pt uses bedpan if able to call and request in time for BM. Pt complains of continued ABD pain. Awaiting results of CT scan at this time. Will continue to monitor until report given to day RN and update as appropriate.
[2018-08-19 09:25] LABS: Digoxin (Lanoxin) 1.43 ug/mL (0.80-2.00)
--- NOTE | 2018-08-19 13:58 | NUR ---
INITIAL PAL CARE CONSULT DONE per request of pt's Dr and RN. Visit made in pt's room with two sons, Benjamín and Magan. Pt was asleep t/o most of the visit. She woke briefly and I introduced myself to her but when I attempted to do an assessment of s/s with her she fell right back to sleep. She is holding an emesis bag in her hand and reported to son that she had some abdominal discomfort but nurse states she has not c/o nausea or had emesis. Pt was dx recently with colon ca and had a debulking surgery of colon mass approx 3 weeks ago. She was at SNF for rehab after surgery but returned with resp s/s, sob, fever, elevated white count and indicators of possible infection. 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 She is very weak and very fatigued. She is not able to stay awake for long per DR and sons. THey have had multiple conversations with their mom in recent weeks and recent years as they all cared for pt's , grandmother and another family member who in the past four years. Pt's advanced directive supports their conversations with their mom and state she would not want to pursue aggressive/currative tx under these circumstances. I confirmed with sons that pt desires DNR status also as that was her expressed wish previously, but at this time her orders state FULL CODE. Pt also have evidence of an ileus at this time, which son's were not aware of at the time of my visit. Dr Zamudio is pt's PCP and her EFM Dr today. She reports that pt was active, regularly playing tennis and kayaking up until the time of her dx of colon cancer and that admission/surgery. Pt has also expressed to her that she would not want to seek tx/prolongation of life if her cancer was agressive or left her debilitated/incapacitated. Comfort care and hospice care discussed with sons. They are in favor and state they had already discussed with pt and understood she was requesting comfort care at this time. I informed them that we would reassess tomorrow and formulate a d/c plan at that time if indicated. Sons were clear that although they are home and able to be present with their mom that homegoing with hospice was not an option and they would seek EOL care in another setting if needed. They are not comfortable as her sons providing personal care to their mom. VM left for Sharon MUNOZ with brief update re: above. Another option that may be possible would be hiring a cg for personal care in the home. I did not broach that topic today as we were just getting comfort care on board. felt pt may actually feel better initially and may have improved kidney function once antibiotics and other medications d/c'd and comfort care orders instituted. Reviewed all of above with pt's RN and reported to Dr, with VO of comfort care and comfort care meds entered and reviewed again with RN. I encouraged sons to have me paged if they had any other questions, concerns or thoughts and/or if pt awoke and would like me to return. Plan to return tomorrow or sooner if requested/indicated. Pt lying with HOB elevated, sl to moderate SOB noted with O2 via NC in place. Skin is warm and sl damp. I did not note any other nonverbal indicators of pain or distress while in the room. Pt was unable to report s/s to me. Earlier, she was awake and able to take PO meds with bites of food. Medications used for comfort and s/s management including PO metoprolol discussed with sai, RN, . Sai understand and agree with D/c of all IV rxs except for those needed for comfort and that if IV site goes bad another will not be started. We discussed alternate routes of RX administration. Plan - Comfort care assessment this renan and again daily. Assist with dc planning as indicated depending on pt's response, s/s and progression with EOL.
[2018-08-19 14:50] LABS: Adenovirus F 40/41 Not Detected (NOT DETECT); Astrovirus Not Detected (NOT DETECT); Campylobacter Sp Not Detected (NOT DETECT); Cryptosporidium Not Detected (NOT DETECT); Cyclospora Cayetanensis Not Detected (NOT DETECT); E. Coli O157 Not Detected (NOT DETECT); Entamoeba Histolytica Not Detected (NOT DETECT); Enteroaggregative E. coli-EAEC Not Detected (NOT DETECT); Enteropathogenic E. coli-EPEC Not Detected (NOT DETECT); Enterotoxigenic E. coli-ETEC Not Detected (NOT DETECT); Giardia Lamblia Not Detected (NOT DETECT); Norovirus GI/GII Not Detected (NOT DETECT); Plesiomonas Shigelloides Not Detected (NOT DETECT); Rotavirus A Not Detected (NOT DETECT); Salmonella Sp Not Detected (NOT DETECT); Sapovirus Not Detected (NOT DETECT); Shiga Toxin-prod E. coli-STEC Not Detected (NOT DETECT); Shigella/Enteroin E. coli-EIEC Not Detected (NOT DETECT); Vibrio Cholerae Not Detected (NOT DETECT); Vibrio Sp Not Detected (NOT DETECT); Yersinia Enterocolitica Not Detected (NOT DETECT)
--- NOTE | 2018-08-19 15:24 | NUR ---
PT STATES ABD PAIN 8/10 WITH COUGHING, PRN ROXONOL 5MG SL GIVEN. FAMILY AGREES WITH PLAN OF CARE.
--- NOTE | 2018-08-19 15:30 | NUR ---
BEGINNING OF SHIFT - TRANSFER TO MEDICAL FLOOR Assumed care of pt at 0700. Report received from Caitie HOOKER and Aide HOOKER. Pt on [address] Zamudio in to see pt early this AM. Discussed decreased renal function, elevated lactic acid, blood pressures, IV fluids, and heart rate. Verbal orders and PK orders received from provider. Consult called to Dr Gan. PK orders received from provider. Dr Zamudio in to see patient. Plan of care discussed with patient and both of her sons. Patient stated she did not want agressive treatment anymore. Pt's sons both stated they thought this was reasonable. Patient was very tired during this conversation and a plan was made to give the patient a few hours to rest, the sons would come back in a few hours, and comfort care would be finalized. Pt's sons came back around noon and stated they were ready to move forward with placing the patient on comfort care. Margarita HOOKER from palliative care notified that family was in the room. She met with the patient and the family. Stated that comfort care was to be initiated. Pt given room assignment - 303. Telephone report given to Amaury HOOKER. Family updated on plan of care. Pt transferred to room 303 at 1500 accompanied by this RN, Emma CHAN, and pt's two sons. Transferred from PCU bed to med floor bed with slider sheet and 3 staff members. Chart, belongings, and medications transferred with patient
--- NOTE | 2018-08-19 18:43 | NUR ---
SHIFT SUMMARY. PT REPORTS THAT ABD PAIN HAD DECREASED SIGNIFICANTLY SINCE INITIAL DOSE OF ROXONOL. PT REPORTED THAT SHE DID NOT REQUIRED ANOTHER DOSE AT THAT TIME.
--- NOTE | 2018-08-20 04:35 | NUR ---
Pt changed. Pt had liquid green stool. Skin in good condition. Pt moaning alot when turned. Pt given roxinal.
--- NOTE | 2018-08-20 04:36 | NUR ---
Shift summarry: Pt has been breathing very shallow all shift. Lungs making gurgling sounds. Pt has very little air exchange. Pt changed x 2 during the night. Pt has liquid green stool. Not sure on the urine output. Pt on enteric precautions. Pt on comfort care. Pt moaning alot when turned so given some roxinol after 0430 changing.
--- NOTE | 2018-08-20 10:25 | NUR ---
COMFORT CARE ASSESSMENT AND VISIT. TWO SONS ARE NOT PRESENT AT THE TIME OF MY VISIT. ONE WAS EXPECTING DAUGHTER IN AND WAS GOING TO PICK HER UP [place] TODAY WITH PLANS THAT TWO SONS AND GRANDDAUGHTER WOULD RETURN THIS AFTERNOON PER MY CONVERSATION WITH THEM YESTERDAY. PT DID NOT INITALLY WAKE TO VOICE BUT OPENED HER EYES TO TOUCH. I ASKED HER IF I COULD BRUSH HER HAIR AND WASH HER FACE AND WITH A BARELY PERCEPTIBLE NOD AND SHE NODDED YES AND CLOSED HER EYES AGAIN. SHE COULD NOT ANSWER WHEN I ASKED HER IF WHE WAS HURTING. I DID NOT NOTE NONVERBAL INDICATORS OF PAIN OR DISTRESS. SHE SEEMED TO LIKE HAVING HER HAIR BRUSHED AND FACE WASHED BUT DID NOT MOVE A MUSCLE WHILE I WAS IN THE ROOM, OTHER THAN BREATHING, SHALLOWLY AND OPENING HER EYES BRIEFLY. REPORT TO RN ON MY VISIT AND REPORT TO LIGHTHOUSE KEEPER, FRANK TO UPDATE ON MY CONVERSATION WITH SONS YESTERDAY AND ASK THAT SHE MAKE CONTACT FOR DC PLANNING IF NEEDED. WILL TRY TO TOUCH BASES WITH FAMILY THIS AFTERNOON FOR PALLIATIVE CARE VISIT AND CONT TO ASSESS PT FOR S/S MANAGEMENT NEEDS.
--- NOTE | 2018-08-20 15:52 | NUR ---
Met pt. in bed resting and unable to talk , pt. is on comfort-care provided spiritual andemotional support to the son offered prayers and annointing to pt.
--- NOTE | 2018-08-20 16:21 | NUR ---
PT RESTING COMFORTABLY THROUGHOUT MOST OF THE SHIFT WITHOUT DISTRESS OR DISCOMFORT. PT DID C/O OF ANXIETY AT APPROXIMATELY 1000, IT WAS MANAGED WELL WITH ATIAN 0.5MG IV. PT BECAME MORE LETHARGIC AND DIFFICULT TO BE ARROUSED SHIFT PROGRESSED. BREATHING AT THIS TIME IS SHALLOW AND INTERMITTENT, NO AIR HUNGER OBSERVED, NO TACYPNEA. SON AT BEDSIDE INTERMITTENTLY DURING SHIFT, MARY IN TO VISIT THIS AFTERNOON. PT UNABLE TO VISIT WITH FAMILY SECONDARY TO LETHARGY. PT CONTNUES WIHT LIQUID STOOLS, ROUTINE INCONTINENCE CARE PROVIDED. NO FAMILY PRESENT AT THIS TIME.
--- NOTE | 2018-08-20 18:07 | NUR ---
173 PT'S BREATHING BECOMING MORE INTERMITTENT AND SHALLOW, NOT TACHYPNIC, NO AIR HUNGER. PT'S SON VALERIO NOTIFIED VIA TELEPHONE OF PT'S TRANSITIONING, HE REPORTED THAT HE WOULD NOTIFY THE REST OF HIS FAMILY AND THEY WOULD BE RETURNING TO THE HOSPITAL SHORTLY.
--- NOTE | 2018-08-20 23:37 | NUR ---
pt has at 23 13. Family at bedside. Nursing farm equipment maintenance supervisor and md notified. Pt did no want pastoral services. Personal belongs given to family. Could not get a toe ring off due to swelling. Iv removed and pt cleaned up and isolation gown on patient.
--- NOTE | 2018-08-21 01:35 | NUR ---
Pt to mortuary at 0030
== END 2018-08-21 00:40 | DRG 871 ==
LOC: ER 22:26 → ICUE 08-15 02:25 → ICUW 08-15 02:25 → PCU 08-15 02:25 → ICUE 08-15 02:34 → PCU 08-18 10:30 → MEDS 08-19 14:59
PROVIDERS: Emergency Medicine; Family Medicine; Internal Medicine Gastroenterology; Student in an Organized Health Care Education/Training Program; ADMIT Internal Medicine
PROC: 5A2204Z Restoration of Cardiac Rhythm, Single (ICD-10-PCS; principal; 2018-08-15)
DX: A41.9 Sepsis, unspecified organism (principal); G93.41 Metabolic encephalopathy; J96.01 Acute respiratory failure with hypoxia; J18.1 Lobar pneumonia, unspecified organism; C77.9 Secondary and unspecified malignant neoplasm of lymph node, unspecified; E87.1 Hypo-osmolality and hyponatremia; C18.0 Malignant neoplasm of cecum; A04.72 Enterocolitis due to Clostridium difficile, not specified as recurrent; E46 Unspecified protein-calorie malnutrition; C78.02 Secondary malignant neoplasm of left lung; I24.8 Other forms of acute ischemic heart disease; K56.699 Other intestinal obstruction unspecified as to partial versus complete obstruction; Z51.5 Encounter for palliative care; R65.20 Severe sepsis without septic shock; E87.6 Hypokalemia; I12.9 Hypertensive chronic kidney disease with stage 1 through stage 4 chronic kidney disease, or unspecified chronic kidney disease; N18.3 Chronic kidney disease, stage 3 (moderate); E88.09 Other disorders of plasma-protein metabolism, not elsewhere classified; I25.10 Atherosclerotic heart disease of native coronary artery without angina pectoris; I48.0 Paroxysmal atrial fibrillation; E78.5 Hyperlipidemia, unspecified; D64.9 Anemia, unspecified; I95.9 Hypotension, unspecified; Z87.891 Personal history of nicotine dependence; Z79.01 Long term (current) use of anticoagulants; Z95.5 Presence of coronary angioplasty implant and graft; Z68.21 Body mass index [BMI] 21.0-21.9, adult
CPT/HCPCS: 36415; 36600; 71045; 71250; 74176; 80053; 80069; 80162; 81001; 82550; 82553; 82803; 83605; 83690; 83735; 83880; 84145; 84484; 85025; 85027; 85610; 87040; 87324; 87486; 87507; 87581; 87633; 87798; 92960; 93005; 93010; 93308; 93321; 94640; 94760; 96365; 96375; 97162; 97530; 99285-25; J0282; J1160; J1940; J1956; J2020; J2060; J2250; J2405; J2543; J3010; J3475; J3480; J7030; J7050; J7060; P9041; P9612